=== PATIENT | female | born 1930 | race Caucasian/White ===

== ENCOUNTER 2016-07-14 10:22 | Inpatient (IN) | payer OTHER, MEDICARE ==
[~2016-07-14] VITALS: Ht 175.3 cm; Wt 81.5 kg
[~2016-07-14 10:22] MED LIST: ACET25TA PO; ALPR.25 PO; ASPI81TA82 PO; CALC-197 PO; DONE5TAB14 PO; HYDR-3533 PO; LISI5 PO; PREG25 PO; VITA100020 SL; [UNRECOGNIZED DRUG - OTHER] PO
[2016-07-14 10:33] VITALS: BP 160/72; PULSE 75; RESP 14; TEMP 98.1; O2SAT 93
[2016-07-14] MEDS ORDERED: PANTOPRAZOLE INJ 80 MG in SODIUM CHLORIDE 0.9% INJ 35 ML IV ONE (11:15)
[2016-07-14] MEDS ORDERED: SODIUM CHLORIDE 0.9% FLUSH 10 ML FLUSH IVF PRN (11:15)
[2016-07-14] MEDS ORDERED: SODIUM CHLOR 0.9% 1000 ML INJ 1,000 ML IV SCH ×2 (11:15→16:35)
--- NOTE | 2016-07-14 11:18 | PD ---
HPI Chief Complaint: GI Complaint Time Seen by Provider: 11:18 Travel History International Travel<30 days: No Contact w/Intl Traveler<30days: No Traveled to known affect area: No History of Present Illness HPI 86-year-old female with a history of CVA, TIA, dementia, paroxysmal atrial fibrillation presents to the emergency department from her assisted living facility for evaluation of bloody stools. The patient is accompanied by her daughter who is a nurse and provides much the history. The patient states that she had one episode of stool yesterday that have bright red blood. Patient's daughter states that they assumed she had a hemorrhoid. States that last night she had 2-3 episodes of stool with dark red blood. States that she does have some abdominal discomfort with nausea. States that she has felt weak over the past 2 days as well. Patient's daughter states that she feels she is a little more confused than usual but states she has had a urinary tract infection for the past 2 weeks which has also caused her to have some aggravation of her dementia. Denies any fever, chills, vomiting, chest pain, shortness of breath, lightheadedness, dizziness. Denies anticoagulation. No other complaints. PFSH Past Medical History Alzheimer's Disease: Yes Arthritis: Yes Asthma: No Atrial Fibrillation: Yes Autoimmune Disease: No Blood Disorders: No Anxiety: Yes Depression: No Heart Rhythm Problems: Yes (HX OF A-FIB) Cancer: Yes (BREAST CA) Cardiac Catheterization: Yes Cardiovascular Problems: Yes (AFIB) High Cholesterol: Yes (cholesterol) Chemotherapy: No Chest Pain: No Congestive Heart Failure: No COPD: No Cerebrovascular Accident: Yes (MULTIPLE STROKES ) Diabetes: No Diminished Hearing: No Endocrine: No Gastrointestinal Disorders: No GERD: No Genitourinary: No Hepatitis: Yes (B) Hiatal Hernia: No Hypertension: Yes Immune Disorder: No Implanted Vascular Access Dvce: Yes Kidney Stones: No Musculoskeletal: Yes (SPINAL STENOSIS; HX FALLS) Neurologic: Yes (TIA (TEN YEARS AGO), SYNCOPE WITH COLLAPSE) Psychiatric: Yes (TRANS CEREB ISCHEMIA) Reproductive: No Respiratory: No Immunizations Current: Yes Migraines: No Myocardial Infarction: Yes Radiation Therapy: Yes (2007 BREAST CA) Renal Failure: No Seizures: No Sickle Cell Disease: No Sleep Apnea: No Thyroid Disease: No Ulcer: No Influenza Vaccination: Yes ?: Not Menopausal: Yes Past Surgical History Abdominal Surgery: Yes ( RECTOCELE REP.) AICD: No Arteriovenous Shunt: No Cardiac Surgery: No Ear Surgery: No Endocrine Surgery: No Eye Surgery: No Genitourinary Surgery: No Gynecologic Surgery: Yes (hysterectomy) Hysterectomy: Yes Insulin Pump: No Joint Replacement: Yes (BILATERAL KNEES) Mastectomy: Yes (PARTIAL RIGHT MASTECTOMY) Oral Surgery: No Pacemaker: No Thoracic Surgery: No Tonsillectomy: Yes Other Surgery: Yes (RECTOCELE) Social History Alcohol Use: No Tobacco Use: No Substance Use: No Allergies-Medications (Allergen,Severity, Reaction): Coded Allergies: Penicillin (Verified Allergy, Severe, Hives, 07/14/16) Reported Meds & Prescriptions Reported Meds & Active Scripts Active Reported Xanax (Alprazolam) 0.25 Mg Tab 0.25 Mg PO BID Vitamin D High Potency (Cholecalciferol) 1,000 Unit Cap 2,000 Units PO BID Lyrica (Pregabalin) 100 Mg Cap 100 Mg PO BID Detrol LA (Tolterodine Tartrate) 4 Mg Cap 4 Mg PO DAILY Colace (Docusate Sodium) 100 Mg Capsule 100 Mg PO HS Caltrate 600+D Plus Minerals (Calcium Carbonate-Vitamin D W/Minerals) 600-800 Mg -Unit Tab 1 Tab PO HS Atorvastatin (Atorvastatin Calcium) 20 Mg Tab 20 Mg PO HS Review of Systems Except as stated in HPI: all other systems reviewed are Neg Physical Exam Narrative GENERAL: Well-nourished and well-developed pleasant elderly female patient in no acute distress who is nontoxic appearing. SKIN: Warm and dry. HEAD: Normocephalic and atraumatic. EYES: No injection, drainage, or hyphema noted. PERRLA. EOMI. ENT: No nasal drainage noted. Oropharynx is clear. NECK: Supple and the trachea is midline. CARDIOVASCULAR: Regular rate and rhythm. RESPIRATORY: Breath sounds are equal bilaterally with no accessory muscle use, wheezing, rhonchi, or crackles. GASTROINTESTINAL: Generalized abdominal tenderness to palpation. No rebound tenderness or guarding. Abdomen is soft and nondistended. RECTAL EXAM: No external hemorrhoids noted. No masses or tenderness. Stool is brown with both dark and bright red blood. Performed in the presence of Alaina FERNANDEZ. MUSCULOSKELETAL: No obvious deformities, swelling, cyanosis, or ecchymosis is present throughout the upper and lower extremities. Patient has full range of motion without any signs of neurovascular compromise. NEUROLOGICAL: Awake, alert, and oriented. Normal speech and gait. Cranial nerves are grossly intact. Data Data Last Documented VS Vital Signs Date Time Temp Pulse Resp B/P Pulse Ox O2 Delivery O2 Flow Rate FiO2 07/14/16 13:16 76 24 181/82 97 Room Air 07/14/16 10:33 98.1 Orders Complete Blood Count With Diff (07/14/16 11:15) Comprehensive Metabolic Panel (07/14/16 11:15) Lipase (07/14/16 11:15) Prothrombin Time / Inr (Pt) (07/14/16 11:15) Act Partial Throm Time (Ptt) (07/14/16 11:15) Type And Screen (07/14/16 11:15) Ecg Monitoring (07/14/16 11:15) Iv Access Insert/Monitor (07/14/16 11:15) Oximetry (07/14/16 11:15) Sodium Chlor 0.9% 1000 Ml Inj (Ns 1000 M (07/14/16 11:15) Sodium Chloride 0.9% Flush (Ns Flush) (07/14/16 11:15) Pantoprazole Inj (Protonix Inj) (07/14/16 11:15) Pantoprazole Inj (Protonix Inj) (07/14/16 11:15) Ct Abd/Pel W Iv Contrast(Rout) (07/14/16 11:15) Iohexol 350 Inj (Omnipaque 350 Inj) (07/14/16 13:17) Alprazolam (Xanax) (07/14/16 14:30) Consult Gastroenterology (07/14/16 ) (Hub Use Only)Inp Phy Cons/Ref (07/14/16 ) Labs Laboratory Tests Test 07/14/16 11:20 White Blood Count 7.2 TH/MM3 Red Blood Count 3.64 MIL/MM3 Hemoglobin 11.6 GM/DL Hematocrit 34.4 % Mean Corpuscular Volume 94.7 FL Mean Corpuscular Hemoglobin 31.8 PG Mean Corpuscular Hemoglobin 33.6 % Concent Red Cell Distribution Width 14.6 % Platelet Count 170 TH/MM3 Mean Platelet Volume 9.4 FL Neutrophils (%) (Auto) 84.1 % Lymphocytes (%) (Auto) 5.2 % Monocytes (%) (Auto) 8.6 % Eosinophils (%) (Auto) 1.6 % Basophils (%) (Auto) 0.5 % Neutrophils # (Auto) 6.1 TH/MM3 Lymphocytes # (Auto) 0.4 TH/MM3 Monocytes # (Auto) 0.6 TH/MM3 Eosinophils # (Auto) 0.1 TH/MM3 Basophils # (Auto) 0.0 TH/MM3 CBC Comment DIFF FINAL Differential Comment Prothrombin Time 10.9 SEC Prothromb Time International 1.0 RATIO Ratio Activated Partial 25.0 SEC Thromboplast Time Sodium Level 139 MEQ/L Potassium Level 3.9 MEQ/L Chloride Level 106 MEQ/L Carbon Dioxide Level 23.6 MEQ/L Anion Gap 9 MEQ/L Blood Urea Nitrogen 18 MG/DL Creatinine 0.96 MG/DL Estimat Glomerular Filtration 55 ML/MIN Rate Random Glucose 97 MG/DL Calcium Level 8.6 MG/DL Total Bilirubin 0.3 MG/DL Aspartate Amino Transf 12 U/L (AST/SGOT) Alanine Aminotransferase 22 U/L (ALT/SGPT) Alkaline Phosphatase 85 U/L Total Protein 6.4 GM/DL Albumin 3.1 GM/DL Lipase 118 U/L Blood Type O POSITIVE Antibody Screen NEGATIVE MDM Medical Decision Making Medical Screen Exam Complete: Yes Emergency Medical Condition: Yes Differential Diagnosis GI bleed versus internal hemorrhoid versus colitis versus diverticulitis versus anemia Narrative Course 86-year-old female presents to the emergency department for evaluation of bloody stool. Patient is afebrile, vital signs are stable. On examination she does have both dark and bright red blood in her stool. Stool is guaiac positive. She does have some abdominal tenderness as well. IV access is obtained, labs were drawn and sent. Patient is placed on cardiac telemetry and pulse oximetry monitoring. Patient is administered IV fluids, Protonix bolus and drip. CT of the abdomen and pelvis with IV contrast has been ordered and is pending. CBC is unremarkable. CMP is unremarkable. Coags are unremarkable. CT of the abdomen and pelvis shows a loss of postural architecture in the hepatic flexure with some mild blurring of the wall of the colon. This is nonspecific but raises the possibility of an inflammatory process in the hepatic flexure. Sigmoid diverticula without radiographic evidence for diverticulitis. 6 mm noncalcified nodule medial right lung. Small hiatus hernia. 2 cm focal fluid collection in the right inguinal canal which does not connect into the pelvis and does not connect to a loop of bowel of uncertain significance. Patient has remained stable while here in the emergency department. She has had some anxiety about waiting here for results and was given Xanax which she usually takes. Because she is actively bleeding from her rectum she will be admitted for repeat CBC and gastroenterology consultation. I discussed the case with my attending physician Dr. Feng who is aware of the patients history, physical examination findings, and treatment plan. HemaPrompt Point of Care Internal Pos. & Neg. Controls: Passed Fecal Specimen Occult Blood: Positive Physician Communication Physician Communication I spoke with Dr. Alexandra [facility] who agrees to admit the patient to his service. Diagnosis Primary Impression: GI bleed Qualified Code: K92.2 - Gastrointestinal hemorrhage, unspecified gastrointestinal hemorrhage type Admitting Information Admitting Physician Requests: Observation Brenna Hauser Jul 14, 2016 11:18
[2016-07-14 11:42] LABS: AUTOMATED NEUTROPHIL # 6.1 TH/MM3 (1.8-7.7); BASOPHIL % 0.5 % (0.0-2.0); EOSINOPHIL # 0.1 TH/MM3 (0-0.4); EOSINOPHIL % 1.6 % (0.0-4.0); HEMATOCRIT 34.4 % (35.0-46.0); HEMO FLAGS DIFF FINAL; LYMPH % 5.2 % (9.0-44.0); LYMPHOCYTE # 0.4 TH/MM3 (1.0-4.8); MEAN CELL VOLUME 94.7 FL (80.0-100.0); MEAN CORPUSCULAR HEMOGLOBIN 31.8 PG (27.0-34.0); MEAN CORPUSCULAR HGB CONC 33.6 % (32.0-36.0); MONO % 8.6 % (0.0-8.0); NEUT % 84.1 % (16.0-70.0); PLATELET COUNT 170 TH/MM3 (150-450); RED BLOOD COUNT 3.64 MIL/MM3 (4.00-5.30); RED CELL DISTRIBUTION WIDTH 14.6 % (11.6-17.2); WHITE BLOOD COUNT 7.2 TH/MM3 (4.0-11.0)
[2016-07-14 11:51] LABS: PROTHROMBIN TIME - PATIENT 10.9 SEC (9.8-11.6)
[2016-07-14] MEDS: PANTOPRAZOLE INJ 80 MG in SODIUM CHLORIDE 0.9% INJ 100 ML IV SCH ×2 (12:09→21:28)
[2016-07-14 12:29] LABS: ANION GAP 9 MEQ/L (5-15); AST (GOT) 12 U/L (15-37); BICARBONATE 23.6 MEQ/L (21.0-32.0); BLOOD UREA NITROGEN 18 MG/DL (7-18); CHLORIDE 106 MEQ/L (98-107); GLOMERULAR FILTRATION RATE 55 ML/MIN (>89); POTASSIUM 3.9 MEQ/L (3.5-5.1); SODIUM (NA) 139 MEQ/L (136-145)
[2016-07-14 12:33] LABS: ALKALINE PHOSPHATASE 85 U/L (45-117); ALT (GPT) 22 U/L (10-53); TOTAL BILIRUBIN ADULT 0.3 MG/DL (0.2-1.0)
[2016-07-14 13:16] VITALS: BP 181/82; PULSE 76; RESP 24; O2SAT 97
[2016-07-14] MEDS ORDERED: IOHEXOL 350 MG/ML 10 ML VIAL (for RAD DIAG) IV ONE (13:17)
[2016-07-14] MEDS ORDERED: ATOR20TA15 PO (13:54)
[2016-07-14] MEDS ORDERED: DETR4CAP PO (13:54)
[2016-07-14] MEDS ORDERED: COLA100C PO (13:54)
[2016-07-14] MEDS ORDERED: CALC1TAB34 PO (13:54)
[2016-07-14] MEDS ORDERED: ALPR.5 PO (14:20)
[2016-07-14] MEDS ORDERED: LYRI100C PO (14:20)
[2016-07-14] MEDS ORDERED: VITA100052 PO (14:20)
[2016-07-14] MEDS ORDERED: ALPRAZolam 0.25 MG TAB PO PRN (14:30)
--- NOTE | 2016-07-14 14:42 | RADRPT ---
EXAM DATE/TIME: 07/14/2016 13:02 [facility] COMPARISON: No previous studies available for comparison. INDICATIONS : Abdomen pain, nausea and bloody stool for 2 days. IV CONTRAST: 96 cc Omnipaque 350 (iohexol) IV ORAL CONTRAST: No oral contrast ingested. RADIATION DOSE: 24.16 CTDIvol (mGy) MEDICAL HISTORY : Cardiovascular disease. Hypertension. Malignancy.Nephrectomy, diverticulitis, SURGICAL HISTORY : Masectomy ENCOUNTER: Initial ACUITY: 2 days PAIN SCALE: 2/10 LOCATION: middle abdomen TECHNIQUE: Volumetric scanning of the abdomen and pelvis was performed. Using automated exposure control and ad justment of the mA and/or kV according to patient size, radiation dose was kept as low as reasonably achievable to obtain optimal diagnostic quality images. FINDINGS: LOWER LUNGS: There is a 6 mm noncalcified nodule medial right lower lung. Small hiatus hernia. LIVER: Homogeneous density without lesion. There is no dilation of the biliary tree. No calcified gallston es. SPLEEN: Normal size without lesion. PANCREAS: No focal lesions. Diffuse fatty atrophy. KIDNEYS: Normal in size and shape. There is no mass, stone or hydronephrosis. ADRENAL GLANDS: Within normal limits. VASCULAR: There is no aortic aneurysm. BOWEL/MESENTERY: No dilated loops of small or large bowel. There is some mild blurring of the wall of the colon in th e region of the hepatic flexure without definite wall thickening without free fluid. This is of unce rtain significance. There is also loss of haustration in the segment of the colon. Multiple sigmoid diverticula without radiographic evidence of diverticulitis. ABDOMINAL WALL: Within normal limits. RETROPERITONEUM: There is no lymphadenopathy. BLADDER: No wall thickening or mass. REPRODUCTIVE: Within normal limits. INGUINAL: There is a rounded low density oval lesion in the right inguinal canal which measures 2.0 cm. Main C T density is 3 Hounsfield units suggesting this represents a small collection of fluid. This does no t connect to the abdomen or pelvis. MUSCULOSKELETAL: Transpedicular screws in the lower lumbar spine. Diffuse osteopenia. CONCLUSION: 1. The loss of haustral architecture in the hepatic flexure with some mild blurring of the wall of th e colon. This is nonspecific but raises the possibility of an inflammatory process in the hepatic fl exure. 2. Sigmoid diverticula without radiographic evidence of diverticulitis. 3. 6 mm noncalcified nodule medial right lung. 4. Small hiatus hernia. 5. 2 cm focal fluid collection in the right inguinal canal which does not connect into the pelvis and does not connect to a loop of bowel. This is of uncertain significance. Manny Stover MD on July 14, 2016 at 14:12 Board Certified Radiologist. This report was verified electronically.
[2016-07-14] MEDS ORDERED: ALPR.25 PO (14:48)
--- NOTE | 2016-07-14 15:57 | PD.CONS ---
HPI History of Present Illness This is a 86 year old lady with hx diverticulosis who presented to ER with rectal bleeding. Pt with dementia, non contributory. Hx obtained from daughter. Yesterday onset BRBPR. During night 2 or 3 incidents of dark blood and stool seen in bowl by [facility] staff, seen by daughter. She did have fever last night. No hx GI bleed. Last colonoscopy some years ago, more than 5, findings not known. Distant history of diverticulitis requiring hospitalization, more than 20 y ago. Denies abd pain but per daughter when pt is palpated she c/o pain. No n/v. No blood thinners. No NSAIDs. Pt is taking antibiotics for a UTI, macrobid. Per daughter pt at one time lived in close contact with son who had Hep c. (Laura Cabrera) PFSH Past Medical History dementia, alzheimers breast ca TIA CVA hx AF but no currently Past Surgical History bilat knee replacement lumbar fusion x 2 hysterectomy partial mastectomy right side (Laura Cabrera) Coded Allergies: Haldol (Verified Allergy, Severe, PSYCHOSIS, 07/14/16) Penicillin (Verified Allergy, Severe, Hives, 07/14/16) Family History none Social History no ETOH no tobacco, quit 40y ago no illicit drugs (Laura Cabrera) Review of Systems Constitutional: COMPLAINS OF: Fever (last night) Eyes: DENIES: Blurred vision Ears, nose, mouth, throat: DENIES: Hearing loss Respiratory: DENIES: Cough Cardiovascular: DENIES: Chest pain Gastrointestinal: COMPLAINS OF: Bloody stools, Diarrhea, DENIES: Abdominal pain, Black stools, Constipation, Nausea, Vomiting, Hematemesis Genitourinary: COMPLAINS OF: Dysuria (pt being treated for UTI), DENIES: Hematuria Musculoskeletal: DENIES: Muscle aches Integumentary: DENIES: Abnormal pigmentation Hematologic/lymphatic: DENIES: Bruising Neurologic: DENIES: Headache Psychiatric: DENIES: Anxiety (Laura Cabrera) GI Exam Vitals I&O Vital Signs Date Time Temp Pulse Resp B/P Pulse Ox O2 Delivery O2 Flow Rate FiO2 07/14/16 13:16 76 24 181/82 97 Room Air 07/14/16 10:33 98.1 75 14 160/72 93 Imaging Last Impressions Abdomen/Pelvis CT 07/14/16 1115 Signed Impressions: Service Date/Time: July 13:02 - CONCLUSION: 1. The loss of haustral architecture in the hepatic flexure with some mild blurring of the wall of the colon. This is nonspecific but raises the possibility of an inflammatory process in the hepatic flexure. 2. Sigmoid diverticula without radiographic evidence of diverticulitis. 3. 6 mm noncalcified nodule medial right lung. 4. Small hiatus hernia. 5. 2 cm focal fluid collection in the right inguinal canal which does not connect into the pelvis and does not connect to a loop of bowel. This is of uncertain significance. Manny Stover MD Laboratory Test 07/14/16 11:20 White Blood Count 7.2 TH/MM3 Red Blood Count 3.64 MIL/MM3 Hemoglobin 11.6 GM/DL Hematocrit 34.4 % Mean Corpuscular Volume 94.7 FL Mean Corpuscular Hemoglobin 31.8 PG Mean Corpuscular Hemoglobin 33.6 % Concent Red Cell Distribution Width 14.6 % Platelet Count 170 TH/MM3 Mean Platelet Volume 9.4 FL Neutrophils (%) (Auto) 84.1 % Lymphocytes (%) (Auto) 5.2 % Monocytes (%) (Auto) 8.6 % Eosinophils (%) (Auto) 1.6 % Basophils (%) (Auto) 0.5 % Neutrophils # (Auto) 6.1 TH/MM3 Lymphocytes # (Auto) 0.4 TH/MM3 Monocytes # (Auto) 0.6 TH/MM3 Eosinophils # (Auto) 0.1 TH/MM3 Basophils # (Auto) 0.0 TH/MM3 CBC Comment DIFF FINAL Differential Comment Prothrombin Time 10.9 SEC Prothromb Time International 1.0 RATIO Ratio Activated Partial 25.0 SEC Thromboplast Time Sodium Level 139 MEQ/L Potassium Level 3.9 MEQ/L Chloride Level 106 MEQ/L Carbon Dioxide Level 23.6 MEQ/L Anion Gap 9 MEQ/L Blood Urea Nitrogen 18 MG/DL Creatinine 0.96 MG/DL Estimat Glomerular Filtration 55 ML/MIN Rate Random Glucose 97 MG/DL Calcium Level 8.6 MG/DL Total Bilirubin 0.3 MG/DL Aspartate Amino Transf 12 U/L (AST/SGOT) Alanine Aminotransferase 22 U/L (ALT/SGPT) Alkaline Phosphatase 85 U/L Total Protein 6.4 GM/DL Albumin 3.1 GM/DL Lipase 118 U/L Blood Type O POSITIVE Antibody Screen NEGATIVE Physical Examination HEENT: Pupils round and reactive to light; normocephalic; atraumatic; no jaundice. Throat is clear. NECK: Neck is supple, no JVD, no lymphadenopathy. CHEST: Chest is clear to auscultation and percussion. CARDIAC: Regular rate and rhythm with no murmur gallop or rubs. ABDOMEN: Soft, nondistended, nontender; no hepatosplenomegaly; bowel sounds are present in all four quadrants. EXTREMITIES: No clubbing, cyanosis, or edema. SKIN: Normal; no rash; no jaundice. SCIENTIFIC WRITER: No focal deficits; alert and oriented times three. (Laura Cabrera) Assessment and Plan Plan ASSESSMENT - diarrhea, hematochezia - onset yesterday BRBPR and subsequent episodes dark blood and stool seen in bowl. No prior hx GI bleed, last colonoscopy more than 5y ago, findings not known. Does have diverticulosis. CT 07-14-16 --> 1. The loss of haustral architecture in the hepatic flexure with some mild blurring of the wall of the colon. This is nonspecific but raises the possibility of an inflammatory process in the hepatic flexure. 2. Sigmoid diverticula without radiographic evidence of diverticulitis. 3. 6 mm noncalcified nodule medial right lung. 4. Small hiatus hernia. 5. 2 cm focal fluid collection in the right inguinal canal which does not connect into the pelvis and does not connect to a loop of bowel. This is of uncertain significance PLAN - stool cx - colonoscopy tomorrow - obtain consents - clears - GoLytely prep - NPO after midnight - supportive care - monitor HH - further recommendations to follow This pt seen by myself and Dr Frey and this note is written on his behalf. ( Laura Cabrera) Physician Comments Seen and examined, plan as above . Further recommendations based on the endoscopic findings. (Graeme Frey MD ) Laura Cabrera Jul 14, 2016 15:57 Graeme Frey MD Jul 14, 2016 23:52
--- NOTE | 2016-07-14 16:36 | HHI.HP ---
[facility] Noel Castrejon MD Admission Diagnosis GI Bleed Diagnoses: Chief Complaint: Blood in the stool Travel History International Travel<30 Days: No Contact w/Intl Traveler <30 Da: No Traveled to Known Affected Are: No History of Present Illness 86-year-old female with a medical history significant for dementia, breast cancer status post resection, remote history of atrial fibrillation not on anticoagulant, diverticulosis who presented to the emergency room with complaint of blood in the stool since yesterday. The patient has dementia and unable to contribute much to the history. History obtained from extensive review of the EMR and discussion with the patient's daughter at bedside. Apparently the patient has had a UTI that was previously treated with ciprofloxacin. However couple of days ago her urinalysis was still abnormal and she was switched to Macrobid. She remained asymptomatic from a urinary standpoint. Yesterday afternoon she reportedly had a fever and had a couple episodes of bowel movements with blood in it. This happened at the intermediate facility and her daughter is unable to quantify. The patient presented today and had another episode of dark stool and bright red blood in the emergency room. She denies abdominal pain at rest. No nausea or vomiting. Review of Systems Constitutional: COMPLAINS OF: Fever, DENIES: Chills Respiratory: DENIES: Cough, Shortness of breath Cardiovascular: DENIES: Chest pain, Palpitations Gastrointestinal: COMPLAINS OF: Black stools, Bloody stools, DENIES: Diarrhea , Nausea, Vomiting Genitourinary: DENIES: Dysuria Psychiatric: COMPLAINS OF: Confusion Except as stated in HPI: all other systems reviewed are Neg Past Family Social History Past Medical History History of atrial fibrillation. Daughter reports she was followed by cardiology and was discontinued on all medications many years ago since she did not have any recurrence of A. fib Dementia Breast cancer TIA Pituitary Macroadenoma Anxiety CAD status post PCI Past Surgical History Bilateral knee replacement Rectocele repair Lumbar fusion Right mastectomy Hysterectomy Reported Medications Reported Meds & Active Scripts Active Reported Xanax (Alprazolam) 0.25 Mg Tab 0.25 Mg PO BID Vitamin D High Potency (Cholecalciferol) 1,000 Unit Cap 2,000 Units PO BID Lyrica (Pregabalin) 100 Mg Cap 100 Mg PO BID Detrol LA (Tolterodine Tartrate) 4 Mg Cap 4 Mg PO DAILY Colace (Docusate Sodium) 100 Mg Capsule 100 Mg PO HS Caltrate 600+D Plus Minerals (Calcium Carbonate-Vitamin D W/Minerals) 600-800 Mg -Unit Tab 1 Tab PO HS Atorvastatin (Atorvastatin Calcium) 20 Mg Tab 20 Mg PO HS Allergies: Coded Allergies: Penicillin (Verified Allergy, Severe, Hives, 07/14/16) Family History Reviewed and noncontributory. Social History Patient does not drink alcohol or use tobacco. Physical Exam Vital Signs Vital Signs Date Time Temp Pulse Resp B/P Pulse Ox O2 Delivery O2 Flow Rate FiO2 07/14/16 13:16 76 24 181/82 97 Room Air 07/14/16 10:33 98.1 75 14 160/72 93 Physical Exam GENERAL: Elderly female. Pleasantly demented SKIN: No rashes, ecchymoses or lesions. Cool and dry. HEAD: Atraumatic. Normocephalic. No temporal or scalp tenderness. EYES: Pupils equal round and reactive. Extraocular motions intact. No scleral icterus. No injection or drainage. ENT: Nose without bleeding, purulent drainage or septal hematoma. Throat without erythema, tonsillar hypertrophy or exudate. Uvula midline. Airway patent. NECK: Trachea midline. No JVD or lymphadenopathy. Supple, nontender, no meningeal signs. CARDIOVASCULAR: Regular rate and rhythm without murmurs, gallops, or rubs. RESPIRATORY: Clear to auscultation. Breath sounds equal bilaterally. No wheezes , rales, or rhonchi. GASTROINTESTINAL: Abdomen soft, mildly distended. Diffusely tender to palpation. No guarding. MUSCULOSKELETAL: Trace bilateral lower extremity edema. Negative Homans sign bilaterally. NEUROLOGICAL: Awake and alert. At times confused. Normal speech. Laboratory Laboratory Tests Test 07/14/16 11:20 White Blood Count 7.2 Red Blood Count 3.64 Hemoglobin 11.6 Hematocrit 34.4 Mean Corpuscular Volume 94.7 Mean Corpuscular Hemoglobin 31.8 Mean Corpuscular Hemoglobin 33.6 Concent Red Cell Distribution Width 14.6 Platelet Count 170 Mean Platelet Volume 9.4 Neutrophils (%) (Auto) 84.1 Lymphocytes (%) (Auto) 5.2 Monocytes (%) (Auto) 8.6 Eosinophils (%) (Auto) 1.6 Basophils (%) (Auto) 0.5 Neutrophils # (Auto) 6.1 Lymphocytes # (Auto) 0.4 Monocytes # (Auto) 0.6 Eosinophils # (Auto) 0.1 Basophils # (Auto) 0.0 CBC Comment DIFF FINAL Differential Comment Prothrombin Time 10.9 Prothromb Time International 1.0 Ratio Activated Partial 25.0 Thromboplast Time Sodium Level 139 Potassium Level 3.9 Chloride Level 106 Carbon Dioxide Level 23.6 Anion Gap 9 Blood Urea Nitrogen 18 Creatinine 0.96 Estimat Glomerular Filtration 55 Rate Random Glucose 97 Calcium Level 8.6 Total Bilirubin 0.3 Aspartate Amino Transf 12 (AST/SGOT) Alanine Aminotransferase 22 (ALT/SGPT) Alkaline Phosphatase 85 Total Protein 6.4 Albumin 3.1 Lipase 118 Blood Type O POSITIVE Antibody Screen NEGATIVE Result Diagram: 07/14/16 1120 07/14/16 1120 Imaging Last Impressions Abdomen/Pelvis CT 07/14/16 1115 Signed Impressions: Service Date/Time: , July 14, 2016 13:02 - CONCLUSION: 1. The loss of haustral architecture in the hepatic flexure with some mild blurring of the wall of the colon. This is nonspecific but raises the possibility of an inflammatory process in the hepatic flexure. 2. Sigmoid diverticula without radiographic evidence of diverticulitis. 3. 6 mm noncalcified nodule medial right lung. 4. Small hiatus hernia. 5. 2 cm focal fluid collection in the right inguinal canal which does not connect into the pelvis and does not connect to a loop of bowel. This is of uncertain significance. Manny Stover MD Assessment and Plan Problem List: (1) GI bleed ICD Code: K92.2 Status: Acute (2) Colitis ICD Code: K52.9 Status: Acute (3) UTI (urinary tract infection) ICD Code: N39.0 Status: Acute Assessment and Plan 86-year-old female with: GI bleed: Patient has been having melena and bright red blood per rectum for the past couple of days. Witnessed episode in the ED. She was recently on antibiotics for UTI. History of diverticulosis. Abdominal CT noted loss of hospital architecture in the hepatic flexure. Some possibility of inflammatory process. Diverticuli with no overt evidence of diverticulitis - Need to rule out C. difficile colitis. Serial H&H. Concerned that hemoconcentration is showing a falsely elevated H& H. Appreciate GI consult Patient was started on Protonix drip in the ED. Supportive care with IV fluid and pain control. Elevated BP: Likely secondary to above. Monitor BP Clonidine as needed. UTI: Patient was reportedly being treated for UTI at this SNF. She was started on Macrobid yesterday - Continue Macrobid Dementia with behavioral disturbances, mostly anxiety: Continue Xanax as needed. Code Status DNR Discussed Condition With ER KIRILL Sagastume Physician Certification 2 Midnight Certification Type: Admission for Inpatient Services Order for Inpatient Services The services are ordered in accordance with Medicare regulations or non- Medicare payer requirements, as applicable. In the case of services not specified as inpatient-only, they are appropriately provided as inpatient services in accordance with the 2-midnight benchmark. Estimated LOS (days): 3 days is the estimated time the patient will need to remain in the hospital, assuming treatment plan goals are met and no additional complications. Post-Hospital Plan: SNF Problem Qualifiers (1) GI bleed: Qualified Code: K92.2 - Gastrointestinal hemorrhage, unspecified gastrointestinal hemorrhage type Juanito Alexandra MD Jul 14, 2016 16:36
[2016-07-14] MEDS ORDERED: SODIUM CHLORIDE 0.9% FLUSH 10 ML FLUSH IV FLUSH PRN (16:45)
[2016-07-14 17:46] VITALS: BP 170/77; PULSE 64; RESP 15; O2SAT 96
[2016-07-14] MEDS ORDERED: ONDANSETRON HCL 4 MG/2 ML VIAL IV PRN (18:00)
[2016-07-14] MEDS ORDERED: PEG (High)/E-LYTE SOLN 4000 ML BTL PO ONE (18:00)
[2016-07-14 18:30] VITALS: BP 208/84; PULSE 56; RESP 18; TEMP 97.8; O2SAT 95
[2016-07-14 18:50] VITALS: BP 182/81
[2016-07-14] MEDS: cloNIDine HCL 0.1 MG TAB PO PRN (19:01)
[2016-07-14 19:22] LABS: REVIEW FLAG FINAL
[2016-07-14 20:00] VITALS: BP 200/88; PULSE 60; RESP 18; TEMP 97.8; O2SAT 95
[2016-07-14] MEDS: ATORVASTATIN 20 MG TAB PO SCH (21:28)
[2016-07-14] MEDS: DOCUSATE SODIUM 100 MG CAP PO SCH (21:28)
[2016-07-14] MEDS: PREGABALIN 100 MG CAP PO SCH (21:28)
[2016-07-14] MEDS: ALPRAZolam 0.25 MG TAB PO SCH (21:28)
[2016-07-14] MEDS: CHOLECALCIFEROL (VIT D3) 1000 UNIT TAB PO SCH (21:28)
[2016-07-14] MEDS: SODIUM CHLORIDE 0.9% FLUSH 10 ML FLUSH IV FLUSH SCH (21:28)
[2016-07-14 22:49] LABS: C. DIFF EPI 027 PRESUMPTIVE NEGATIVE (NEGATIVE); C. DIFF TOXIN PCR NEGATIVE (NEGATIVE)
[2016-07-15] VITALS (7 sets, daily range): BP systolic 134–233; BP diastolic 61–106; PULSE 52–82; RESP 14–20; TEMP 97.4–98; O2SAT 93–98
[2016-07-15] MEDS: cloNIDine HCL 0.1 MG TAB PO PRN ×3 (01:21→19:45)
[2016-07-15 03:31] LABS: HEMATOCRIT 30.3 % (35.0-46.0); MEAN CELL VOLUME 94.8 FL (80.0-100.0); MEAN CORPUSCULAR HEMOGLOBIN 31.9 PG (27.0-34.0); MEAN CORPUSCULAR HGB CONC 33.7 % (32.0-36.0); PLATELET COUNT 140 TH/MM3 (150-450); RED BLOOD COUNT 3.19 MIL/MM3 (4.00-5.30); RED CELL DISTRIBUTION WIDTH 14.5 % (11.6-17.2); WHITE BLOOD COUNT 5.1 TH/MM3 (4.0-11.0)
[2016-07-15 03:34] LABS: HEMO FLAGS AUTO DIFF
[2016-07-15 03:52] LABS: BICARBONATE 26.6 MEQ/L (21.0-32.0); POTASSIUM 3.5 MEQ/L (3.5-5.1)
[2016-07-15 04:14] LABS: BANDS 2 % (0-6); EOSINOPHILS 3 % (0-4); NEUTROPHIL # MANUAL DIFF 3.9 TH/MM3 (1.8-7.7); POLYS (SEG NEUTROPHILS) 75 % (16-70); WBC DIFF SAMPLE 100
[2016-07-15 04:17] LABS: PLATELET ESTIMATE SMEAR LOW (NORMAL); PLATELET MORPHOLOGY NORMAL (NORMAL); SCAN/DIFF FINAL DIFF MANUAL
[2016-07-15] MEDS: PANTOPRAZOLE INJ 80 MG in SODIUM CHLORIDE 0.9% INJ 100 ML IV SCH (06:19)
[2016-07-15] MEDS: PREGABALIN 100 MG CAP PO SCH ×2 (09:05→19:47)
[2016-07-15] MEDS: CHOLECALCIFEROL (VIT D3) 1000 UNIT TAB PO SCH ×2 (09:05→19:52)
[2016-07-15] MEDS: TOLTERODINE TARTRATE 4 MG CAP LA PO SCH (09:06)
[2016-07-15] MEDS: SODIUM CHLORIDE 0.9% FLUSH 10 ML FLUSH IV FLUSH SCH ×2 (09:06→20:05)
[2016-07-15] MEDS: CALCIUM/VITAMIN D 250 MG/125 U TAB PO SCH (09:06)
[2016-07-15] MEDS: ALPRAZolam 0.25 MG TAB PO SCH ×2 (09:08→19:45)
[2016-07-15] MEDS ORDERED: LISINOPRIL 20 MG TAB PO ONE (10:00)
[2016-07-15] MEDS ORDERED: PROPOFOL 200 MG/20 ML AMP IV PUSH ONE (10:22)
--- NOTE | 2016-07-15 10:34 | GIPROC ---
[facility] [address] [facility]. [facility], [id number] COLONOSCOPY PROCEDURE REPORT EXAM DATE: 07/15/2016 PATIENT NAME: Rae Marie MR #: [id number] BIRTHDATE: 1930 ENDOSCOPIST: Graeme Frey MD ORDER #: [id number] EXAMINER OF CURRENCY: Jeff Negrete and Sada Gillespie STATUS: inpatient INDICATIONS: The patient is a 86 yr old female here for a colonoscopy due to hematochezia PROCEDURE PERFORMED: Colonoscopy, diagnostic MEDICATIONS: None and Per Anesthesia. PREP QUALITY: poor PREP TYPE:GoLytely ESTIMATED BLOOD LOSS: None CONSENT: The patient understands the risks and benefits of the procedure and understands that these risks include, but are not limited to: sedation, allergic reaction, infection, perforation and/or bleeding. Alternative means of evaluation and treatment include, among others: physical exam, x-rays, and/or surgical intervention. The patient elects to proceed with this endoscopic procedure. medical equipment was checked for proper function. Hand hygiene and appropriate measures for infection prevention was taken. After the risks, benefits and alternatives of the procedure were thoroughly explained, Informed consent was verified, confirmed and timeout was successfully executed by the treatment team. A digital exam was performed The Pentax [id number] endoscope was introduced through the anus and advanced to the cecum, which was identified by both the appendix and ileocecal valve. The instrument was then slowly withdrawn as the colon was fully examined. COLON FINDINGS: Severe diverticulosis was noted in the sigmoid colon, descending colon, and ascending colon. Retroflexed views revealed no abnormalities The scope was then completely withdrawn from the patient and the procedure terminated. PROCEDURE WITHDRAWAL TIME:9minutes ADVERSE EVENTS: There were no complications. IMPRESSIONS: 1. Severe diverticulosis was noted in the sigmoid colon, descending colon, and ascending colon 2. Retroflexed views revealed no abnormalities RECOMMENDATIONS: High fiber diet RECALL: Return 1 year Colonoscopy Graeme Frey MD eSigned: Graeme Frey MD 07/15/2016 10:33 AM cc: PATIENT NAME: Rae Marie MR#: [id number]
--- NOTE | 2016-07-15 14:01 | HHI.PR ---
Objective Vitals Vital Signs Date Time Temp Pulse Resp B/P Pulse Ox O2 Delivery O2 Flow Rate FiO2 07/15/16 12:00 97.5 63 14 196/89 93 07/15/16 10:59 66 18 133/73 95 07/15/16 10:45 67 18 129/66 97 07/15/16 10:30 97.6 59 18 111/67 93 07/15/16 09:58 98.0 60 20 152/68 98 07/15/16 08:00 98.0 60 20 233/106 95 219/90 224/95 07/15/16 04:00 97.8 59 16 134/61 95 07/15/16 00:01 97.6 52 17 185/77 95 07/14/16 20:00 97.8 60 18 200/88 95 07/14/16 18:50 182/81 07/14/16 18:30 97.8 56 18 208/84 95 07/14/16 17:46 64 15 170/77 96 Room Air I/O 07/14/16 07/14/16 07/14/16 07/15/16 07/15/16 07/15/16 07:00 15:00 23:00 07:00 15:00 23:00 Intake Total 1621 ml 562 ml 150 ml Output Total 250 ml 1 ml 2 ml Balance 1371 ml 561 ml 148 ml Intake Oral 1080 ml 0 ml 0 ml IV Total 541 ml 562 ml 150 ml Output Urine Total 250 ml 1 ml 2 ml # Voids 2 # Bowel Movements 8 4 0 Result Diagram: 07/15/16 0318 07/15/16 0318 Imaging Last Impressions Abdomen/Pelvis CT 07/14/16 1115 Signed Impressions: Service Date/Time: July 13:02 - CONCLUSION: 1. The loss of haustral architecture in the hepatic flexure with some mild blurring of the wall of the colon. This is nonspecific but raises the possibility of an inflammatory process in the hepatic flexure. 2. Sigmoid diverticula without radiographic evidence of diverticulitis. 3. 6 mm noncalcified nodule medial right lung. 4. Small hiatus hernia. 5. 2 cm focal fluid collection in the right inguinal canal which does not connect into the pelvis and does not connect to a loop of bowel. This is of uncertain significance. Manny Stover MD Objective Remarks GENERAL: Elderly female. Anxious and tearful. CARDIOVASCULAR: Regular rate and rhythm without murmurs, gallops, or rubs. RESPIRATORY: Clear to auscultation. Breath sounds equal bilaterally. No wheezes , rales, or rhonchi. GASTROINTESTINAL: Abdomen soft, mildly distended. Nontender to palpation. No guarding. MUSCULOSKELETAL: Trace bilateral lower extremity edema. Negative Homans sign bilaterally. NEUROLOGICAL: Awake and alert. Confused. Normal speech. A/P Problem List: (1) GI bleed ICD Code: K92.2 Status: Acute (2) Colitis ICD Code: K52.9 Status: Acute (3) UTI (urinary tract infection) ICD Code: N39.0 Status: Acute Assessment and Plan 86-year-old female with: GI bleed: Patient has been having melena and bright red blood per rectum for the past couple of days. Witnessed episode in the ED. She was recently on antibiotics for UTI. History of diverticulosis. Abdominal CT noted loss of hospital architecture in the hepatic flexure. Some possibility of inflammatory process. Diverticuli with no overt evidence of diverticulitis -C. difficile colitis ruled out. Serial H&H. Trended down but stabilizing. Appreciate GI following. Patient is status post colonoscopy which showed severe diverticulosis. Supportive care with IV fluid and pain control. Elevated BP: Likely secondary to above. Monitor BP Clonidine as needed. UTI: Patient was reportedly being treated for UTI at this SNF. She was started on Macrobid yesterday - Continue Macrobid Dementia with behavioral disturbances, mostly anxiety. However the patient is also depressed today, requesting to because "she has lived a very good life and does not want to go back to the prison facility because people are fighting there": Continue Xanax as needed. Consult psychiatry for assistance. Discharge Planning Continue to monitor. If no further episodes of bleeding and cleared by GI, can potentially discharge back to the prison facility tomorrow. Problem Qualifiers (1) GI bleed: Qualified Code: K92.2 - Gastrointestinal hemorrhage, unspecified gastrointestinal hemorrhage type Juanito Alexandra MD Jul 15, 2016 14:01
[2016-07-15 16:36] LABS: REVIEW FLAG FINAL
[2016-07-15] MEDS: NITROFURANTOIN MONOHYD MACROCR 100 MG CAP PO SCH (18:00)
[2016-07-15] MEDS: ATORVASTATIN 20 MG TAB PO SCH (19:52)
[2016-07-15] MEDS: DOCUSATE SODIUM 100 MG CAP PO SCH (19:52)
[2016-07-15 22:42] LABS: HEMATOCRIT 33.9 % (35.0-46.0); REVIEW FLAG FINAL
[2016-07-16] VITALS: BP 177/80; PULSE 69; RESP 19; TEMP 97; O2SAT 97
[2016-07-16 04:00] VITALS: BP 137/86; PULSE 89; RESP 19; TEMP 97.1; O2SAT 96
[2016-07-16 09:01] LABS: HEMATOCRIT 36.9 % (35.0-46.0); MEAN CELL VOLUME 95.1 FL (80.0-100.0); MEAN CORPUSCULAR HGB CONC 32.6 % (32.0-36.0); PLATELET COUNT 164 TH/MM3 (150-450); RED BLOOD COUNT 3.88 MIL/MM3 (4.00-5.30); RED CELL DISTRIBUTION WIDTH 14.2 % (11.6-17.2); REVIEW FLAG FINAL; WHITE BLOOD COUNT 7.2 TH/MM3 (4.0-11.0)
[2016-07-16] MEDS: CALCIUM/VITAMIN D 250 MG/125 U TAB PO SCH (09:36)
[2016-07-16] MEDS: CHOLECALCIFEROL (VIT D3) 1000 UNIT TAB PO SCH (09:36)
[2016-07-16] MEDS: PREGABALIN 100 MG CAP PO SCH (09:36)
[2016-07-16] MEDS: NITROFURANTOIN MONOHYD MACROCR 100 MG CAP PO SCH (09:36)
[2016-07-16] MEDS: TOLTERODINE TARTRATE 4 MG CAP LA PO SCH (09:36)
[2016-07-16] MEDS: ALPRAZolam 0.25 MG TAB PO SCH (09:36)
[2016-07-16 09:37] LABS: BICARBONATE 23.2 MEQ/L (21.0-32.0); POTASSIUM 4.6 MEQ/L (3.5-5.1)
[2016-07-16] MEDS: SODIUM CHLORIDE 0.9% FLUSH 10 ML FLUSH IV FLUSH SCH (09:39)
[2016-07-16] MEDS ORDERED: ESCITALOPRAM OXALATE 10 MG TAB PO SCH (09:45)
--- NOTE | 2016-07-16 09:47 | PD.CONS ---
Provisional Diagnosis Admission Date Jul 14, 2016 at 16:00 Hayden I. Major depressive disorder single episode mild f 32.0 History of Present Illness Service Psychiatry Consult Requested By Attending MXochitl Reason for Consult Depressive symptoms Primary Care Physician Noel Castrejon MD HPI Patient is an 86-year-old white female admitted to medical service with a GI bleed. Is made statements that she just wants to . Review of our EMR shows no prior psychiatric contact or hospitalizations. Patient seen in her room with nurse and sitter present throughout session. She is an alert pleasant white female appears her stated age resting quietly in bed. She is disoriented as to place time and situation though she knows she is in the hospital. With prompts she does know she is here because she is bleeding and that she needs assistance. She denies any prior psychiatric contact hospitalization his psychotropic medications. She does denies suicidality. Denies alcohol or drug use. Denies voices or visions. She states she has a daughter who lives locally that she is close to. She does acknowledge the sad mood. At this there for the patient is suffering from a depression that may be influencing her ability to make appropriate decisions. It appears her daughter is involved in her care and I think that is appropriate. I would recommend we initiate antidepressant treatment with Lexapro 10 mg daily. I agree with judicious use of low-dose benzodiazepines only if clinically indicated. Thanks for consult will follow-up on an as-needed basis in the myself or Dr. Telles who is covering consult service this week Review of Systems Constitutional: DENIES: Diaphoretic episodes, Fatigue, Fever, Weight gain, Weight loss, Chills, Dizziness, Change in appetite, Night Sweats Endocrine: DENIES: Abnorml menstrual pattern, Heat/cold intolerance, Polydipsia , Polyuria, Polyphagia Eyes: DENIES: Blurred vision, Diplopia, Eye inflammation, Eye pain, Vision loss , Photosensitivity, Double Vision Ears, nose, mouth, throat: DENIES: Tinnitus, Hearing loss, Vertigo, Nasal discharge, Oral lesions, Throat pain, Hoarseness, Ear Pain, Running Nose, Epistaxis, Sinus Pain, Toothache, Odynophagia Respiratory: DENIES: Apneas, Cough, Snoring, Wheezing, Hemoptysis, Sputum production, Shortness of breath Cardiovascular: DENIES: Chest pain, Palpitations, Syncope, Dyspnea on Exertion , PND, Lower Extremity Edema, Orthopnea, Claudication Gastrointestinal: COMPLAINS OF: Black stools, Bloody stools Genitourinary: DENIES: Abnormal vaginal bleeding, Dysmenorrhea, Dyspareunia, Sexual dysfunction, Urinary frequency, Urinary incontinence, Urgency, Hematuria , Dysuria, Nocturia, Vaginal discharge Musculoskeletal: DENIES: Joint pain, Muscle aches, Stiffness, Joint Swelling, Back pain, Neck pain Integumentary: DENIES: Abnormal pigmentation, Pruritus, Rash, Nail changes, Breast masses, Breast skin changes, Nipple discharge Hematologic/lymphatic: DENIES: Bruising, Lymphadenopathy Immunologic/allergic: DENIES: Eczema, Urticaria Neurologic: DENIES: Abnormal gait, Headache, Localized weakness, Paresthesias, Seizures, Speech Problems, Tremor, Poor Balance Psychiatric: COMPLAINS OF: Depression Past Family Social History Coded Allergies: Haldol (Verified Allergy, Severe, PSYCHOSIS, 07/14/16) Penicillin (Verified Allergy, Severe, Hives, 07/14/16) Past Medical History See MedSurg Reported Medications Alprazolam (Xanax)0.25 Mg Tab0.25 Mg PO BID Ref 0 07/14/16 Cholecalciferol (Vitamin D High Potency)1,000 Unit Cap2,000 Units PO BID #1 BOTTLE 07/14/16 Pregabalin (Lyrica)100 Mg [id number] Mg PO BID #60 CAP Ref 0 07/14/16 Tolterodine ER (Detrol LA)4 Mg Cap4 Mg PO DAILY #30 CAP Ref 0 07/14/16 Docusate Sodium (Colace)100 Mg [id number] Mg PO HS 07/14/16 Calcium Carbonate-Vitamin D W/Minerals (Caltrate 600+D Plus Minerals)600-800 Mg- Unit Tab1 Tab PO HS Ref 0 07/14/16 Atorvastatin 20 Mg Tab20 Mg PO HS #30 TAB Ref 0 07/14/16 Discontinued Reported Medications Alprazolam (Xanax)0.5 Mg Tab0.5 Mg PO Q8H PRN (ANXIETY) Ref 0 07/14/16 Current Medications Medications (Trade) Dose Ordered Sig/Nohemy Route Start Time Stop Time Status Last Admin (NS Flush) 2 ml UNSCH PRN IVF 07/14/16 11:15 (Xanax) 0.125 mg ONCE PRN PO 07/14/16 14:30 07/14/16 14:47 (Xanax) 0.25 mg BID PO 07/14/16 21:00 07/15/16 19:45 (Lipitor) 20 mg HS PO 07/14/16 21:00 07/15/16 19:52 (Vitamin D3) 2,000 units BID PO 07/14/16 21:00 07/15/16 19:52 (Colace) 100 mg HS PO 07/14/16 21:00 07/15/16 19:52 (Lyrica) 100 mg BID PO 07/14/16 21:00 07/15/16 19:47 (Detrol La) 4 mg DAILY PO 07/15/16 09:00 07/15/16 09:06 (Oscal-D 250-125) 500 mg DAILY PO 07/15/16 09:00 07/15/16 09:06 (NS Flush) 2 ml UNSCH PRN IV FLUSH 07/14/16 16:45 (NS Flush) 2 ml BID IV FLUSH 07/14/16 21:00 07/15/16 09:06 (Zofran Inj) 4 mg Q6HR PRN IV 07/14/16 18:00 (Catapres) 0.1 mg Q6HR PRN PO 07/14/16 18:00 07/15/16 19:45 (Macrobid) 100 mg BIDPC PO 07/15/16 18:00 Family History Denies mental illness and family Social History Patient has supportive daughter Patient's Strengths (min. 2) Patient verbal pleasant cooperative Physical Exam Please [place] [facility] [place] Vital Signs Vital Signs Date Time Temp Pulse Resp B/P Pulse Ox O2 Delivery O2 Flow Rate FiO2 07/16/16 04:00 97.1 89 19 137/86 96 07/14/16 17:46 Room Air I/O 07/15/16 07/15/16 07/16/16 08:00 16:00 00:00 Intake Total 562 ml 150 ml 240 ml Output Total 1 ml 2 ml 650 ml Balance 561 ml 148 ml -410 ml Mental Status Examination Alert white female appears somewhat younger than stated age laying calmly in bed she is oriented the fact that she is in the hospital, does not know location date or time Appearance Clean needs Speech: Unremarkable, Tangential (mildly) Orientation: Person, Place (though she is in a hospital) Memory: Impaired (describe) Thought Process: Loose Association Thought Content: Unremarkable Language Fair Fund of Knowledge Fair Hallucination Type: None (denies) Attention and Concentration: Other (fair) Suicidal Ideation: No (denies) Previous Suicide Attempts: No (denies) Homicidal Ideation: No (denies) Previous Homicide Attempts: No (denies) Insight: Poor Judgment: Poor Affect: Other (slight decreased range and intensity) Mood: Sad Motor Activity: Abnormal gait-specify (patient seen in bed unable to ascertain gait) Assessment & Plan Problem List: (1) Major depressive disorder, single episode, mild ICD Code: F32.0 Assessment & Plan Estimated LOS: days patient is depressed I feel would benefit from an antidepressant would recommend starting Lexapro 10 mg daily. Is okay by psych for discharge for appropriate facility when medically clear and stable. Patient is not a candidate for admission to [facility] thanks for consult follow-up of when necessary basis Discharge Planning To be determined Request HC Surrog/Guard Advoc?: No Ulysses Maynard MD Jul 16, 2016 09:47
[2016-07-16] MEDS ORDERED: ESCI10TA PO ×2 (11:36→14:55)
[2016-07-16] MEDS ORDERED: NITR100C4 PO ×2 (11:36→14:55)
[2016-07-16] MEDS ORDERED: ALPR.25 PO (11:36)
--- NOTE | 2016-07-16 11:36 | HHI.DS ---
Discharge Summary Admission Date Jul 14, 2016 at 16:00 Discharge Date: Jul 16, 2016 Admitting Diagnosis GI Bleed (1) GI bleed ICD Code: K92.2 (2) Colitis ICD Code: K52.9 (3) UTI (urinary tract infection) ICD Code: N39.0 Procedures Colonoscopy Brief History - From Admission 86-year-old female with a medical history significant for dementia, breast cancer status post resection, remote history of atrial fibrillation not on anticoagulant, diverticulosis who presented to the emergency room with complaint of blood in the stool since yesterday. The patient has dementia and unable to contribute much to the history. History obtained from extensive review of the EMR and discussion with the patient's daughter at bedside. Apparently the patient has had a UTI that was previously treated with ciprofloxacin. However couple of days ago her urinalysis was still abnormal and she was switched to Macrobid. She remained asymptomatic from a urinary standpoint. Yesterday afternoon she reportedly had a fever and had a couple episodes of bowel movements with blood in it. This happened at the care home facility and her daughter is unable to quantify. The patient presented today and had another episode of dark stool and bright red blood in the emergency room. She denies abdominal pain at rest. No nausea or vomiting. CBC/BMP: 07/16/16 0850 07/16/16 0850 Significant Findings Laboratory Tests Test 07/14/16 07/14/16 07/15/16 07/15/16 11:20 19:04 03:18 22:20 Red Blood Count 3.64 MIL/MM3 3.19 MIL/MM3 (4.00-5.30) (4.00-5.30) Hematocrit 34.4 % 30.3 % 33.9 % (35.0-46.0) (35.0-46.0) (35.0-46.0) Neutrophils (%) (Auto) 84.1 % (16.0-70.0) Lymphocytes (%) (Auto) 5.2 % (9.0-44.0) Monocytes (%) (Auto) 8.6 % (0.0-8.0) Lymphocytes # (Auto) 0.4 TH/MM3 (1.0-4.8) Estimat Glomerular Filtration 55 ML/MIN (>89) 75 ML/MIN (>89) Rate Aspartate Amino Transf 12 U/L (15-37) (AST/SGOT) Albumin 3.1 GM/DL (3.4-5.0) Hemoglobin 11.2 GM/DL 10.2 GM/DL (11.6-15.3) (11.6-15.3) Platelet Count 140 TH/MM3 (150-450) Neutrophils % (Manual) 75 % (16-70) Platelet Estimate LOW (NORMAL) Chloride Level 109 MEQ/L (98-107) Calcium Level 8.3 MG/DL (8.5-10.1) Test 07/16/16 08:50 Red Blood Count 3.88 MIL/MM3 (4.00-5.30) Estimat Glomerular Filtration 56 ML/MIN (>89) Rate Random Glucose 145 MG/DL (74-106) Imaging Last Impressions Abdomen/Pelvis CT 07/14/16 1115 Signed Impressions: Service Date/Time: , July 14, 2016 13:02 - CONCLUSION: 1. The loss of haustral architecture in the hepatic flexure with some mild blurring of the wall of the colon. This is nonspecific but raises the possibility of an inflammatory process in the hepatic flexure. 2. Sigmoid diverticula without radiographic evidence of diverticulitis. 3. 6 mm noncalcified nodule medial right lung. 4. Small hiatus hernia. 5. 2 cm focal fluid collection in the right inguinal canal which does not connect into the pelvis and does not connect to a loop of bowel. This is of uncertain significance. Manny Stover MD PE at Discharge GENERAL: Elderly female. Anxious and tearful. CARDIOVASCULAR: Regular rate and rhythm without murmurs, gallops, or rubs. RESPIRATORY: Clear to auscultation. Breath sounds equal bilaterally. No wheezes , rales, or rhonchi. GASTROINTESTINAL: Abdomen soft, mildly distended. Nontender to palpation. No guarding. MUSCULOSKELETAL: Trace bilateral lower extremity edema. Negative Homans sign bilaterally. NEUROLOGICAL: Awake and alert. Confused. Normal speech. Pt update on day of discharge Patient reports she is feeling better this morning. Less confused. No abdominal pain. No bowel movements or bleeding. Family requested discharge back to [facility] with home health care instead of the care home facility. Hospital Course 86-year-old female admitted with GI bleeding. Evaluation treatment course detailed below: GI bleed: Patient has been having melena and bright red blood per rectum for the past couple of days. Witnessed episode in the ED. She was recently on antibiotics for UTI. History of diverticulosis. Abdominal CT noted loss of hospital architecture in the hepatic flexure. Some possibility of inflammatory process. Diverticuli with no overt evidence of diverticulitis -C. difficile colitis ruled out. Serial H&H slightly trended down but quickly normalized without needing transfusion. Patient was followed by GI. Colonoscopy showed severe diverticulosis. GI signed off. Elevated BP on admission: This was likely secondary to above. Blood pressure normalized. UTI: Patient was reportedly being treated for UTI at this SNF. She was started on Macrobid yesterday - Continue Macrobid Dementia with behavioral disturbances, mostly anxiety. However the patient was also depressed and at one point requesting to because "she has lived a very good life and does not want to go back to the care home facility because people are fighting there": Patient was seen by psychiatry and was started on Lexapro. Xanax as needed. Pt Condition on Discharge: Good Discharge Disposition: Discharge to SNF Discharge Time: > 30 minutes Discharge Instructions DIET: Follow Instructions for: Heart Healthy Diet Activities you can perform: Regular-No Restrictions, See Additionl Instruction Other Activity Instructions: Per PT Follow up Referrals: PCP Follow-up - 1 Week New Medications: Escitalopram (Escitalopram) 10 Mg Tab 10 MG PO DAILY #30 TAB Nitrofurantoin Monohydrate Macrocrystals (Nitrofurantoin Monohydrate Macrocrystals) 100 Mg Cap 100 MG PO BIDPC #10 CAP Changed Medications: Alprazolam (Xanax) 0.25 Mg Tab 0.25 MG PO BID PRN ANXIETY #20 Ref 0 TAB (Medication details modified) Continued Medications: Atorvastatin (Atorvastatin) 20 Mg Tab 20 MG PO HS Cholesterol Management #30 Ref 0 TAB Calcium Carbonate-Vitamin D W/Minerals (Caltrate 600+D Plus Minerals) 600-800 Mg -Unit Tab 1 TAB PO HS Nutritional Supplement Ref 0 TAB Cholecalciferol (Vitamin D High Potency) 1,000 Unit Cap 2000 UNITS PO BID #1 BOTTLE Docusate Sodium (Colace) 100 Mg Capsule 100 MG PO HS Pregabalin (Lyrica) 100 Mg Cap 100 MG PO BID #60 Ref 0 CAP Tolterodine ER (Detrol LA) 4 Mg Cap 4 MG PO DAILY Urinary Symptom Managemen #30 Ref 0 CAP Juanito Alexandra MD Jul 16, 2016 11:36
[2016-07-16 12:00] VITALS: BP 113/62; PULSE 72; RESP 20; TEMP 98.9; O2SAT 97
--- NOTE | 2016-07-16 14:52 | HHI.GIFU ---
Subjective Remarks Comfortable in bed denies any pain denies any further bleeding Objective Vitals I&O Vital Signs Date Time Temp Pulse Resp B/P Pulse Ox O2 Delivery O2 Flow Rate FiO2 07/16/16 12:00 98.9 72 20 113/62 97 07/16/16 04:00 97.1 89 19 137/86 96 07/16/16 00:00 97.0 69 19 177/80 97 07/15/16 20:00 97.8 82 18 180/82 96 07/15/16 16:00 97.4 82 18 147/66 97 I/O 07/15/16 07/15/16 07/15/16 07/16/16 07/16/16 07/16/16 07:00 15:00 23:00 07:00 15:00 23:00 Intake Total 562 ml 150 ml 240 ml 240 ml Output Total 1 ml 2 ml 650 ml Balance 561 ml 148 ml -410 ml 240 ml Intake Oral 0 ml 0 ml 240 ml 240 ml IV Total 562 ml 150 ml Output Urine Total 1 ml 2 ml 650 ml # Voids 6 # Bowel Movements 4 0 Laboratory Laboratory Tests Test 07/15/16 07/15/16 07/16/16 15:36 22:20 08:50 Hemoglobin 12.6 11.6 12.0 Hematocrit 37.0 33.9 36.9 White Blood Count 7.2 Red Blood Count 3.88 Mean Corpuscular Volume 95.1 Mean Corpuscular Hemoglobin 31.0 Mean Corpuscular Hemoglobin 32.6 Concent Red Cell Distribution Width 14.2 Platelet Count 164 Mean Platelet Volume 8.4 Sodium Level 139 Potassium Level 4.6 Chloride Level 105 Carbon Dioxide Level 23.2 Anion Gap 11 Blood Urea Nitrogen 17 Creatinine 0.94 Estimat Glomerular Filtration 56 Rate Random Glucose 145 Calcium Level 9.1 Physical Exam NECK: Neck is supple. CHEST: Chest is clear to auscultation and percussion. CARDIAC: Regular rate and rhythm with no murmur gallop or rubs. ABDOMEN: Soft, nondistended, nontender; no hepatosplenomegaly; bowel sounds are present in all four quadrants. EXTREMITIES: No clubbing, cyanosis, or edema. SKIN: Normal; no rash; no jaundice. LABORATORY MONITOR: No focal deficits; alert and oriented times three. Assessment and Plan Plan ASSESSMENT - diarrhea, hematochezia - onset yesterday BRBPR and subsequent episodes dark blood and stool seen in bowl. No prior hx GI bleed, last colonoscopy more than 5y ago, findings not known. Does have diverticulosis. CT 07-14-16 --> 1. The loss of haustral architecture in the hepatic flexure with some mild blurring of the wall of the colon. This is nonspecific but raises the possibility of an inflammatory process in the hepatic flexure. 2. Sigmoid diverticula without radiographic evidence of diverticulitis. 3. 6 mm noncalcified nodule medial right lung. 4. Small hiatus hernia. 5. 2 cm focal fluid collection in the right inguinal canal which does not connect into the pelvis and does not connect to a loop of bowel. This is of uncertain significance Resolved diarrhea and bleeding PLAN -Advance diet as tolerated -supportive care - monitor HH and transfuse as needed - further recommendations to follow Not much to add from a GI perspective at this point in time we will sign off Aba Braun MD Jul 16, 2016 14:52
--- NOTE | 2016-07-16 15:23 | HHI.FF ---
Face to Face Verification Diagnosis: (1) GI bleed (2) UTI (urinary tract infection) (3) Major depressive disorder, single episode, mild (4) Dementia I have seen patient Rae Marie on 07/16/16. My clinical findings support the need for the requested home health care services because: Ltd mobility - disease progression Limited ability to care for self Need for psychosocial assistance Impaired cognition/judgement I certify that my clinical findings support that this patient is homebound because: Impaired cognitive ability/safety Need for psychosocial assistance Juanito Alexandra MD Jul 16, 2016 15:23
--- NOTE | 2016-07-17 11:04 | HHI.FF ---
Face to Face Verification Diagnosis: (1) GI bleed (2) Dementia (3) Major depressive disorder, single episode, mild (4) UTI (urinary tract infection) Physical Therapy Order: Evaluate and Treat, Improve ambulation, Strength and gait training Home Health Nursing Order: Medical education Nursing assessment with vital signs I have seen patient Rae Marie on 07/17/16. My clinical findings support the need for the requested home health care services because: Limited ability to care for self Impaired cognition/judgement High risk of falls I certify that my clinical findings support that this patient is homebound because: Impaired cognitive ability/safety Need for psychosocial assistance Juanito Alexandra MD Jul 17, 2016 11:04
== END 2016-07-16 15:40 | DRG 378 ==
LOC: NEPE 10:22 → NEDA 16:00 → HOCB 18:03
PROVIDERS: ADMIT Family Medicine; ATTEND Family Medicine
PROC: 0DJD8ZZ Inspection of Lower Intestinal Tract, Via Natural or Artificial Opening Endoscopic (ICD-10-PCS; principal; 2016-07-15 10:00)
DX: K92.2 Gastrointestinal hemorrhage, unspecified (principal); F32.0 Major depressive disorder, single episode, mild; G30.9 Alzheimer's disease, unspecified; N39.0 Urinary tract infection, site not specified; F02.80 Dementia in other diseases classified elsewhere, unspecified severity, without behavioral disturbance, psychotic disturbance, mood disturbance, and anxiety; I10 Essential (primary) hypertension; Z86.73 Personal history of transient ischemic attack (TIA), and cerebral infarction without residual deficits; M19.90 Unspecified osteoarthritis, unspecified site; F41.9 Anxiety disorder, unspecified; Z85.3 Personal history of malignant neoplasm of breast; E78.00 Pure hypercholesterolemia, unspecified; Z92.3 Personal history of irradiation; Z96.653 Presence of artificial knee joint, bilateral; Z88.0 Allergy status to penicillin; I25.10 Atherosclerotic heart disease of native coronary artery without angina pectoris; I25.2 Old myocardial infarction; Z66 Do not resuscitate; K57.30 Diverticulosis of large intestine without perforation or abscess without bleeding; K52.9 Noninfective gastroenteritis and colitis, unspecified; K44.9 Diaphragmatic hernia without obstruction or gangrene; Z98.61 Coronary angioplasty status
CPT/HCPCS: 74177; 80048; 80053; 83690; 85007; 85014; 85018; 85025; 85027; 85610; 85730; 86850; 86900; 86901; 87493; 96365; C9113; J7030; Q9967

== ENCOUNTER 2017-09-20 12:57 | Inpatient (IN) ==
--- NOTE | 2017-09-20 13:22 | ED ---
HPI General Chief complaint: Weakness Stated complaint: Swollen Face/Evac Source: family Mode of arrival: EMS Limitations: altered mental status (Dementia patient is a and O 1) History of Present Illness MD Complaint: generalized weakness (for past week or so, thought to be secondary to uti, placed on macrobid for it.) Onset (ago): hour(s) (facial swelling since this am) Duration: constant Location: face Severity: mild Relieving factors: none Exacerbating factors: none Context: other (unknown as to what may be causing facial swelling) Associated symptoms: denies other symptoms Related Data Home Medications Medication Instructions Recorded Confirmed alprazolam [Xanax] 0.25 mg PO BID PRN 09/20/17 09/20/17 atorvastatin [Lipitor] 20 mg PO DAILY 09/20/17 09/20/17 diclofenac sodium 75 mg PO BID 09/20/17 09/20/17 docusate sodium 100 mg PO BID 09/20/17 09/20/17 donepezil 10 mg PO DAILY 09/20/17 09/20/17 escitalopram oxalate [Lexapro] 10 mg PO DAILY 09/20/17 09/20/17 nitrofurantoin monohyd/m-cryst 100 mg PO BID 09/20/17 09/20/17 [Macrobid] pregabalin [Lyrica] 100 mg PO TID 09/20/17 09/20/17 tolterodine [Detrol LA] 4 mg PO DAILY 09/20/17 09/20/17 Allergies Allergy/AdvReac Type Severity Reaction Status Date / Time haloperidol Allergy Severe PSYCHOSIS Verified 09/20/17 13:19 penicillin G Allergy Severe Hives Verified 09/20/17 13:19 quetiapine [From Seroquel] Allergy Severe Psychosis Verified 09/20/17 13:19 Review of Systems ROS: all other systems reviewed are negative PMFSH History History Provided By: Patient Social History Social History Second Hand Smoke Exposure: No Smoking Status: Cognitive impairment How Often Do You Have a Drink Containing Alcohol: Unable to Obtain Recent Travel in [facility] within the Last 8 Weeks: No Recent Out of Country Travel within the Last 8 Weeks: No Exam Narrative Exam Narrative: GENERAL: Elderly female...requires full assitance by 2 nurses to use bedpan. SKIN: Warm and dry. HEAD: Atraumatic. Normocephalic. EYES: Pupils equal and round. No scleral icterus. No injection or drainage. ENT: No nasal bleeding or discharge. Mucous membranes pink and moist. Neck abscess, no dental caries, no gingivitis. Patient does have some asymmetric swelling to the right cheek without any overlying cellulitic changes to the cheek. NECK: Trachea midline. No JVD. CARDIOVASCULAR: Irregularly irregular rhythm, normal rate. no rubs or gallops RESPIRATORY: No accessory muscle use. Clear to auscultation. Breath sounds equal bilaterally. GASTROINTESTINAL: Abdomen soft, diffusely tender to percussion and palpation , nondistended. No rebound or guarding MUSCULOSKELETAL: Extremities without clubbing, cyanosis, or bilateral lower extremity has 2+ pitting edema with cellulitic changes encompassing circumferentially both lower extremities up to the knees. No obvious deformities. NEUROLOGICAL: Awake, A/O 1 but able to follow commands well. generalized weakness . four out of 5 muscle strength in the arms and legs. Course Initial Documented Vital Signs Temperature 97.8 F 09/20/17 13:10 Pulse Rate 97 H 09/20/17 13:10 Respiratory Rate 18 09/20/17 13:10 Blood Pressure 137/79 09/20/17 13:10 Pulse Oximetry 96 09/20/17 13:10 Last Documented Vital Signs Temperature 97.8 F 09/20/17 13:10 Pulse Rate 97 H 09/20/17 15:48 Respiratory Rate 16 09/20/17 15:48 Blood Pressure 144/75 H 09/20/17 15:48 Pulse Oximetry 95 09/20/17 15:48 Medical Decision Making [facility] Narrative Medical decision making narrative: CBC shows no evidence of any leukocytosis, no evidence of any anemia, however there is a neutrophilia of 81%. First set of cardiac enzymes negative First set of lactic acid negative/normal 1.5 All electrolytes are within normal limits, with the exception of prerenal azotemia with a BUN of 27 and a creatinine of 1. Slight elevations of liver enzymes with AST of 43, ALT of 118, albumin low at 2.3 normal bilirubin and alk phos slightly elevated at 179...will obtain ultrs gb r/o ascending cholangitis (this may be cancelled if ct demonstrates findings) Catheterized urine does not reveal any active evidence of UTI CT abdomen and pelvis read by radiologist showing no acute abnormality, cardiomegaly and chronic interstitial changes, diverticulosis of the colon without any acute inflammation.....ct does not show evidence of cholangitis. Medical Screen Exam Complete: Yes Emergency Medical Condition: Yes Differential Diagnosis Differential Diagnosis: uti v pna v facial cellulitis v facial angioedema v colitis v sbo v perforation Medical Records Medical records reviewed: Yes I reviewed the patient's medical records. Upon review of chart it was found that the patient has been admitted for GI bleed, colitis, has had a history of dementia, breast cancer status post resection, history of atrial fibrillation but not on any anticoagulants, diverticulosis, hyperlipidemia, (of note the patient back in June was treated with Cipro and switched to Macrobid, and patient tolerated it well) Lab Data Result diagrams: 09/20/17 13:40 09/20/17 13:40 Lab Results 09/20/17 09/20/17 09/20/17 Range/Units 13:40 13:40 13:40 CBC w Diff Auto diff final WBC 6.1 (4.0-11.0) th/mm3 RBC 3.57 L (4.00-5.30) mil/mm3 Hgb 11.9 (11.6-15.3) gm/dL Hct 33.6 L (35.0-46.0) % MCV 94.2 (80.0-100.0) fL MCH 33.3 (27.0-34.0) pg MCHC 35.3 (32.0-36.0) % RDW 14.3 (11.6-17.2) % Plt Count 186 (150-450) th/mm3 MPV 8.5 (7.0-11.0) fL Neut % (Auto) 81.4 H (16.0-70.0) % Lymph % (Auto) 8.2 L (9.0-44.0) % Evans % (Auto) 4.4 (0.0-8.0) % Eos % (Auto) 5.6 H (0.0-4.0) % Baso % (Auto) 0.4 (0.0-2.0) % Neut # (Auto) 5.0 (1.8-7.7) th/mm3 Lymph # (Auto) 0.5 L (1.0-4.8) th/mm3 Evans # (Auto) 0.3 (0.0-0.9) th/mm3 Eos # (Auto) 0.3 (0.0-0.4) th/mm3 Baso # (Auto) 0.0 (0.0-0.2) th/mm3 WBC Differential . Differential Comment . Sodium 139 (136-145) meq/L Potassium 4.2 (3.5-5.1) meq/L Chloride 104 (98-107) meq/L Carbon Dioxide 29.4 (21.0-32.0) meq/L Anion Gap 6 (5-15) meq/L BUN 27 H (7-18) mg/dL Creatinine 1.00 (0.50-1.00) mg/dL Estimated GFR 52 L (>89) mL/min Random Glucose 89 (74-106) mg/dL Lactic Acid 1.5 (0.4-2.0) mmol/L Calcium 8.9 (8.5-10.1) mg/dL Total Bilirubin 0.3 (0.2-1.0) mg/dL AST 43 H (15-37) U/L ALT 118 H (10-53) U/L Alkaline Phosphatase 179 H (45-117) U/L Total Creatine Kinase 55 (26-192) U/L Troponin I Less than 0.02 L (0.02-0.05) ng/mL Total Protein 5.7 L (6.4-8.2) g/dL Albumin 2.3 L (3.4-5.0) g/dL Lipase 96 (73-393) U/L Urine Color (Yellw/Straw) Urine Clarity (Clear) Urine pH (5.0-8.5) Ur Specific Harris (1.002-1.035) Urine Protein (Neg-Trace) mg/dL Urine Glucose (UA) (Negative) mg/dL Urine Ketones (Negative) mg/dL Urine Occult Blood (Negative) Urine Nitrate (Negative) Urine Bilirubin (Negative) Urine Urobilinogen (Less than 2) mg/dL Ur Leukocyte Esterase (Negative) Urine RBC (0-3) /hpf Urine WBC (0-5) /hpf Ur Squamous Epith Cells (0-5) /hpf Micro UA Comment Urine Culture Comments 09/20/17 Range/Units 14:40 CBC w Diff WBC (4.0-11.0) th/mm3 RBC (4.00-5.30) mil/mm3 Hgb (11.6-15.3) gm/dL Hct (35.0-46.0) % MCV (80.0-100.0) fL MCH (27.0-34.0) pg MCHC (32.0-36.0) % RDW (11.6-17.2) % Plt Count (150-450) th/mm3 MPV (7.0-11.0) fL Neut % (Auto) (16.0-70.0) % Lymph % (Auto) (9.0-44.0) % Evans % (Auto) (0.0-8.0) % Eos % (Auto) (0.0-4.0) % Baso % (Auto) (0.0-2.0) % Neut # (Auto) (1.8-7.7) th/mm3 Lymph # (Auto) (1.0-4.8) th/mm3 Evans # (Auto) (0.0-0.9) th/mm3 Eos # (Auto) (0.0-0.4) th/mm3 Baso # (Auto) (0.0-0.2) th/mm3 WBC Differential Differential Comment Sodium (136-145) meq/L Potassium (3.5-5.1) meq/L Chloride (98-107) meq/L Carbon Dioxide (21.0-32.0) meq/L Anion Gap (5-15) meq/L BUN (7-18) mg/dL Creatinine (0.50-1.00) mg/dL Estimated GFR (>89) mL/min Random Glucose (74-106) mg/dL Lactic Acid (0.4-2.0) mmol/L Calcium (8.5-10.1) mg/dL Total Bilirubin (0.2-1.0) mg/dL AST (15-37) U/L ALT (10-53) U/L Alkaline Phosphatase (45-117) U/L Total Creatine Kinase (26-192) U/L Troponin I (0.02-0.05) ng/mL Total Protein (6.4-8.2) g/dL Albumin (3.4-5.0) g/dL Lipase (73-393) U/L Urine Color Yellow (Yellw/Straw) Urine Clarity Clear (Clear) Urine pH 5.5 (5.0-8.5) Ur Specific Harris 1.020 (1.002-1.035) Urine Protein Negative (Neg-Trace) mg/dL Urine Glucose (UA) Negative (Negative) mg/dL Urine Ketones Negative (Negative) mg/dL Urine Occult Blood Negative (Negative) Urine Nitrate Negative (Negative) Urine Bilirubin Negative (Negative) Urine Urobilinogen 0.2 (Less than 2) mg/dL Ur Leukocyte Esterase Negative (Negative) Urine RBC 0-3 (0-3) /hpf Urine WBC 0-5 (0-5) /hpf Ur Squamous Epith Cells 0-5 (0-5) /hpf Micro UA Comment Cath-culture not ind Urine Culture Comments Cath-cult not ind Imaging Data Radiologist's impression: Abdomen/Pelvis CT 09/20/17 13:24 CONCLUSION: 1. No acute abnormality to explain the patient's pain. 2. Cardiomegaly and chronic interstitial changes. 3. Diverticulosis of the colon without acute inflammation. Chest X-Ray 09/20/17 13:24 CONCLUSION: No acute disease Face CT 09/20/17 13:24 CONCLUSION: 1. 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 2. Otherwise, osseous structures are intact. No acute soft tissue abnormality to explain facial swelling. Discharge Plan Discharge Disposition Patient Disposition: 30 Still Patient Discharge Condition Condition: Fair Discharge Details Diagnosis: Generalized muscle weakness, Angioedema Physicians Team ED Provider: Matti Crowder Primary Care Provider: José Antonio Castrejon Rxs /Orders / Referrals /Forms Prescriptions: No Action atorvastatin [Lipitor] 20 mg Tablet 20 mg PO DAILY RF: 0 tolterodine [Detrol LA] 4 mg Capsule,Extended Release 24hr 4 mg PO DAILY RF: 0 donepezil 10 mg Tablet 10 mg PO DAILY RF: 0 alprazolam [Xanax] 0.25 mg Tablet 0.25 mg PO BID PRN (Reason: Agitation) RF: 0 docusate sodium 100 mg Capsule 100 mg PO BID RF: 0 diclofenac sodium 75 mg Tablet,Delayed Release (Dr/Ec) 75 mg PO BID RF: 0 escitalopram oxalate [Lexapro] 10 mg Tablet 10 mg PO DAILY RF: 0 nitrofurantoin monohyd/m-cryst [Macrobid] 100 mg Capsule 100 mg PO BID RF: 0 pregabalin [Lyrica] 100 mg Capsule 100 mg PO TID RF: 0 Status ED Status: In Room
[2017-09-20] MEDS ORDERED: Famotidine PF Inj 20 MG/2 ML Vial IV.PUSH ONE (13:30)
[2017-09-20] MEDS ORDERED: MethylPREDNISolone Sod Succinate Inj 125 MG/2 ML Vial IV.PUSH ONE (13:30)
[2017-09-20 13:49] LABS: Baso % (Auto) 0.4 % (0.0-2.0); Eos # (Auto) 0.3 th/mm3 (0.0-0.4); Eos % (Auto) 5.6 % (0.0-4.0); Hematocrit 33.6 % (35.0-46.0); Hemoglobin 11.9 gm/dL (11.6-15.3); Lymph # (Auto) 0.5 th/mm3 (1.0-4.8); Lymph % (Auto) 8.2 % (9.0-44.0); Mean Corpuscular HGB Conc 35.3 % (32.0-36.0); Mean Corpuscular Hemoglobin 33.3 pg (27.0-34.0); Mean Corpuscular Volume 94.2 fL (80.0-100.0); Mean Platelet Volume 8.5 fL (7.0-11.0); Mono # (Auto) 0.3 th/mm3 (0.0-0.9); Mono % (Auto) 4.4 % (0.0-8.0); Neut % (Auto) 81.4 % (16.0-70.0); Platelet Count 186 th/mm3 (150-450); Red Blood Count 3.57 mil/mm3 (4.00-5.30); Red Cell Distribution Width 14.3 % (11.6-17.2); White Blood Count 6.1 th/mm3 (4.0-11.0)
[2017-09-20 13:58] LABS: Chloride 104 meq/L (98-107); Potassium 4.2 meq/L (3.5-5.1); Sodium 139 meq/L (136-145)
[2017-09-20 14:02] LABS: Albumin 2.3 g/dL (3.4-5.0); Anion Gap 6 meq/L (5-15); Blood Urea Nitrogen 27 mg/dL (7-18); Calcium 8.9 mg/dL (8.5-10.1); Carbon Dioxide 29.4 meq/L (21.0-32.0); Glucose,Random 89 mg/dL (74-106); Lipase 96 U/L (73-393)
[2017-09-20 14:05] LABS: Alanine Aminotransferase 118 U/L (10-53); Aspartate Aminotransferase 43 U/L (15-37); Glomerular Filtration Rate 52 mL/min (>89)
[2017-09-20 14:07] LABS: Total Protein 5.7 g/dL (6.4-8.2)
[2017-09-20 14:08] LABS: Alkaline Phosphatase 179 U/L (45-117)
[2017-09-20 14:11] LABS: Creatine Kinase 55 U/L (26-192)
--- NOTE | 2017-09-20 14:11 | XR ---
EXAM DATE: 09/20/2017 2:03 PM EDT AGE/SEX: 87 years / Female INDICATIONS: Short of breath. General weakness CLINICAL DATA: This is the patient's initial encounter. Patient reports that signs and symptoms have been present for 1 week and indicates a pain score of 0/10. MEDICAL/SURGICAL HISTORY: Alzheimer's disease. Hypertension. Myocardial infarction. Cardiova scular disease. Hypertension. Mastectomy, right. COMPARISON: [facility] [place], CHEST PA & LAT, 03/19/2012. . FINDINGS: A single AP view of the chest demonstrates the lungs to be symmetrically aerated without evidence of mass, infiltrate or effusion. The cardiomediastinal contours are unremarkable. Osseous structures a re intact. CONCLUSION: No acute disease Electronically signed by: Ulysses rTujillo MD 09/20/2017 2:09 PM EDT
[2017-09-20 14:53] LABS: Bilirubin,Urine Negative (Negative); Clarity,Urine Clear (Clear); Color,Urine Yellow (Yellw/Straw); Glucose,Urine (UA) Negative (Negative); Leukocyte Esterase,Urine Negative (Negative); Nitrite,Urine Negative (Negative); PH,Urine 5.5 (5.0-8.5); Urobilinogen,Urine 0.2 mg/dL (Less than 2)
[2017-09-20 15:00] LABS: RBC,Urine 0-3 /hpf (0-3); Squamous Epithelial Cell,Urine 0-5 /hpf (0-5); WBC,Urine 0-5 /hpf (0-5)
--- NOTE | 2017-09-20 16:08 | CT ---
EXAM DATE: 09/20/2017 3:45 PM EDT AGE/SEX: 87 years / Female INDICATIONS: Abdomen tenderness today CLINICAL DATA: This is the patient's initial encounter. Patient reports that signs and symptoms have been present for 1 day and indicates a pain score of 3/10. MEDICAL/SURGICAL HISTORY: Alzheimer's disease. Hypertension. Carcinoma, breast. None. RADIATION DOSE: 19.36 CTDI (mGy) COMPARISON: [facility] [place], CT ABDOMEN & PELVIS W CONTRAST, 07/14/2016. . TECHNIQUE: Multiple contiguous axial images were obtained through the abdomen. Images were obtained using multiple row detector helical technique. Using automated exposure control and adjustment of the mA and/or kV according to patient size, radiation dose was kept as low as reasonably achievable to o btain optimal diagnostic quality images. DICOM format image data is available electronically for rev iew and comparison. FINDINGS: Lower Lungs: Cardiomegaly. No effusions. Chronic interstitial changes within the bases bilaterally. Liver: The liver has a homogeneous density without space-occupying lesion. There is no dilation of th e biliary tree. Spleen: Homogeneous density without enlargement. Pancreas: Unremarkable without mass or calcification. Kidneys: Normal in size and shape. An extrarenal pelvis is seen involving both kidneys. No evidence of mass or hydronephrosis. Adrenal Glands: Unremarkable. Aorta: Diffuse calcified atherosclerotic plaque involving the aorta and inflow vessels. No aneurysm al change.. Bowel/Mesentery: Colonic diverticulosis most pronounced within the sigmoid colon. No acute inflammat ion observed. The bowel loops are grossly unremarkable. The cecum and sigmoid colon have a normal con figuration. Abdominal Wall: Intact. Retroperitoneum: No evidence of adenopathy in the retrocrural, para-aortic, or deep pelvic regions. Bladder: Contours are smooth. Reproductive Organs: No abnormal masses or calcifications seen. Inguinal: The inguinal region is unremarkable without evidence of adenopathy. Bony Structures: A scoliotic and degenerative spine. Postsurgical changes involving the lower lumbar spine. Bilateral hip osteoarthritis.. CONCLUSION: 1. No acute abnormality to explain the patient's pain. 2. Cardiomegaly and chronic interstitial changes. 3. Diverticulosis of the colon without acute inflammation. Electronically signed by: Manny Caicedo MD 09/20/2017 4:06 PM EDT
--- NOTE | 2017-09-20 16:17 | CT ---
EXAM DATE: 09/20/2017 3:46 PM EDT AGE/SEX: 87 years / Female INDICATIONS: Facial swelling today CLINICAL DATA: This is the patient's initial encounter. Patient reports that signs and symptoms have been present for 1 day and indicates a pain score of 0/10. MEDICAL/SURGICAL HISTORY: Hypertension. Alzheimer's disease. Carcinoma, breast. None. RADIATION DOSE: 30.03 CTDI (mGy) COMPARISON: [facility], MR BRAIN W/O CONTRAST, 01/22/2015. . TECHNIQUE: Contiguous images in the axial and coronal planes were obtained using helical multirow de tector technique. Using automated exposure control and adjustment of the mA and/or kV according to p atient size, radiation dose was kept as low as reasonably achievable to obtain optimal diagnostic cristal lity images. DICOM format image data is available electronically for review and comparison. FINDINGS: Orbits: The orbital and infraorbital osseous structures are intact. The retroconal structures have a normal configuration. No radiopaque foreign bodies are seen. Nasal Bone: The nasal bone and maxillary spine are intact. Zygomatic Arches: Symmetric without evidence of fracture. Sinuses: Soft tissue density is seen in the sphenoid sinus extending up into the left side of the pi tuitary fossa. There is some bony expansion and sclerosis of the pituitary fossa and left skull base. 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 Nasal Cavity: The nasal septum is intact and midline. The lacrimal ducts are intact. Soft Tissues: No radiopaque foreign bodies seen. No soft-tissue swelling is seen. Intracranial: No intracranial air seen. Cribriform Plate: Grossly intact. CONCLUSION: 1. 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 2. Otherwise, osseous structures are intact. No acute soft tissue abnormality to explain facial swel ling. Electronically signed by: Ortiz Ferrer MD 09/20/2017 4:16 PM EDT
[2017-09-20] MEDS ORDERED: Acetaminophen 325 MG Tablet PO PRN (17:13)
[2017-09-20] MEDS: Sod Chloride 0.9% Inj 1,000 ML IV.CONT SCH (17:36)
--- NOTE | 2017-09-20 17:57 | US ---
EXAM DATE: 09/20/2017 5:43 PM EDT AGE/SEX: 87 years / Female INDICATIONS: Right upper quadrant pain. CLINICAL DATA: This is the patient's initial encounter. Patient reports that signs and symptoms have been present for 2 days and indicates a pain score of 7/10. MEDICAL/SURGICAL HISTORY: Alzheimer's disease. Hypercholesterolemia. AFib. Chest pain. CAD. Co nstipation. Fibromyalgia. HTN. Insomnia. IA. Urinary incontinence. Hysterectomy. COMPARISON: [facility], CT ABDOMEN & PELVIS W/O CONTRAST, 09/20/2017. . MEASUREMENTS: Liver:__ 20.1 cm. Common Bile Duct:__ 5mm. FINDINGS: Liver: Increased echotexture without focal lesion or ductal dilation. Portal Vein: Hepatopedal flow seen in portal vein. Common Duct: No intraluminal mass or stone visualized. Gallbladder: Gallbladder wall is borderline prominent. Sludge is noted within the gallbladder. No so nographic Harrington's sign or pericholecystic fluid. Pancreas: Not well visualized. Right Kidney: Increased echotexture. No mass or hydronephrosis. Trace perinephric fluid. Other: None CONCLUSION: 1. Echogenic enlarged liver likely reflecting hepatic steatosis or medical liver disease. 2. Gallbladder sludge with nonspecific borderline gallbladder wall prominence. Electronically signed by: Anderson Calloway MD 09/20/2017 5:56 PM EDT
[2017-09-20] MEDS: Senna/Docusate Sodium 8.6/50 MG Tablet PO SCH (20:31)
[2017-09-20] MEDS ORDERED: Temazepam 15 MG Capsule PO PRN (21:00)
[2017-09-21] MEDS: Senna/Docusate Sodium 8.6/50 MG Tablet PO SCH ×2 (09:45→21:04)
[2017-09-21] MEDS: Sod Chloride 0.9% Inj 1,000 ML IV.CONT SCH (11:54)
[2017-09-21] MEDS: ALPRAZolam 0.25 MG Tablet PO SCH ×2 (14:39→21:06)
[2017-09-21] MEDS: Enoxaparin Inj 40 MG/0.4 ML Syringe SQ SCH (15:41)
--- NOTE | 2017-09-21 16:10 | P.HP ---
History of Present Illness Primary Care Physician: José Antonio Castrejon MD History of Present Illness: 87-year-old female with a history of dementia, atrial fibrillation, myocardial infarction. Approximately 2 weeks ago she experienced 3 falls and generalized weakness, when she visited her physician who did a workup that showed she had a urinary tract infection. For the last weeks he has been treated with Macrobid. She is finished her treatment but yesterday became increasingly weak and confused. She was brought in for evaluation and suspected to have a recurrence of her urinary tract infection, but the urine in the ER looked clean. She has had an abnormal swelling on her right cheek that seemed to respond well to steroid dose in the ER. CT showed no abscess. When asked about possible allergy to Macrobid, her daughter stated that her mom did have a rash in her upper thighs that was intermittent a few days ago. She has generalized abdominal pain, CT was within normal limits, but ultrasound showed sludge in the common bile duct, lab work shows elevated liver enzymes. Since admission she has had no complaints of nausea vomiting or diarrhea. She denies any chest pain, shortness of breath, diaphoresis. She denies any fevers, cough, productive or abnormal sputum. Review of Systems All other systems reviewed negative except as stated in HPI PMFSH - History History Provided By: Family Member - Medical History Medical History: Medical History (Last Reviewed 09/20/17 @ 13:13 by Matti Crowder) Alzheimer's disease Atrial fibrillation Chest pain Constipation Coronary artery disease Fibromyalgia High cholesterol Hypertension Insomnia Myocardial infarction Surgical history unknown Urinary bladder incontinence - Family History Family History: Family History (Last Updated 09/21/17 @ 16:03 by Eder Hauser MD) Other Hypertension - Tobacco History Second Hand Smoke Exposure: No Smoking Status: Former smoker - Alcohol History How Often Do You Have a Drink Containing Alcohol: Never - Substance Use History Substance History: No History of Abuse - Travel History Recent Travel in the [place] Within the Last 8 Weeks: No Recent Travel Out of the Country Within the Last 8 Weeks: No - Immunization History Tetanus Immunization: <5 Years Hx Influenza Vaccine This Season: Yes Medications and Allergies Active Medications: Active Medications Acetaminophen (Tylenol) 650 mg PO Q4H PRN PRN Reason: Temp > 100.4 Al Hydroxide/Mg Hydroxide (Milk Of Magnesia Liq) 30 ml PO Q12H PRN PRN Reason: Mild Constipation Alprazolam (Xanax) 0.25 mg PO BID [facility] Last Admin: 09/21/17 14:39 Dose: Not Given Docusate Sodium (Colace) 100 mg PO BID [facility] Donepezil HCl (Aricept) 10 mg PO DAILY [facility] Enoxaparin Sodium (Lovenox Inj) 40 mg SQ Q24H [facility] Last Admin: 09/21/17 15:41 Dose: 40 mg Escitalopram Oxalate (Lexapro) 10 mg PO DAILY [facility] Sodium Chloride (Ns Inj) 1,000 mls @ 64 mls/hr IV.CONT .[id number] [facility] Last Admin: 09/21/17 11:54 Dose: 64 mls/hr Lorazepam (Ativan Inj) 1 mg IV.PUSH Q6H PRN PRN Reason: AGITATION Last Admin: 09/21/17 15:40 Dose: 1 mg Ondansetron HCl (Zofran Inj) 4 mg IV.PUSH Q6H PRN PRN Reason: NAUSEA OR VOMITING Pregabalin (Lyrica) 100 mg PO TID [facility] Last Admin: 09/21/17 14:39 Dose: Not Given Senna/Docusate Sodium (Dana-Colace) 1 tab PO BID [facility] Last Admin: 09/21/17 09:45 Dose: Not Given Sodium Chloride (Ns Flush) 2 ml IV.FLUSH PRN PRN PRN Reason: FLUSH AFTER USING IV ACCESS Temazepam (Restoril) 15 mg PO HS PRN PRN Reason: INSOMNIA Last Admin: 09/20/17 21:57 Dose: 15 mg Tolterodine Tartrate (Detrol La) 4 mg PO DAILY [facility] Allergies Allergy/AdvReac Type Severity Reaction Status Date / Time haloperidol Allergy Severe PSYCHOSIS Verified 09/20/17 13:19 penicillin G Allergy Severe Hives Verified 09/20/17 13:19 quetiapine [From Seroquel] Allergy Severe Psychosis Verified 09/20/17 13:19 Home Medications Medication Instructions Recorded Confirmed Type alprazolam [Xanax] 0.25 mg PO BID PRN 09/20/17 09/20/17 History atorvastatin [Lipitor] 20 mg PO DAILY 09/20/17 09/20/17 History diclofenac sodium 75 mg PO BID 09/20/17 09/20/17 History docusate sodium 100 mg PO BID 09/20/17 09/20/17 History donepezil 10 mg PO DAILY 09/20/17 09/20/17 History escitalopram oxalate [Lexapro] 10 mg PO DAILY 09/20/17 09/20/17 History nitrofurantoin monohyd/m-cryst 100 mg PO BID 09/20/17 09/20/17 History [Macrobid] pregabalin [Lyrica] 100 mg PO TID 09/20/17 09/20/17 History tolterodine [Detrol LA] 4 mg PO DAILY 09/20/17 09/20/17 History Exam Vital signs: Vital Signs 09/20/17 17:16 09/20/17 18:14 09/20/17 20:00 Temperature 96 F L Pulse Rate 106 H 98 H 84 Respiratory Rate 16 18 20 Blood Pressure 115/67 125/77 134/65 Pulse Oximetry 95 98 94 L 09/21/17 00:00 09/21/17 08:00 09/21/17 12:00 Temperature 97.4 F L 97.5 F L 96 F L Pulse Rate 104 H 103 H 86 Respiratory Rate 20 20 20 Blood Pressure 134/76 124/71 137/71 Pulse Oximetry 93 L 90 L 92 L Intake & Output 09/20/17 09/21/17 09/21/17 18:59 06:59 18:59 Intake Total 120 / 120 1000 / 1000 Balance 120 / 120 1000 / 1000 Weight 81.647 kg 80.2 kg Intake: IV 1000 / 1000 NS Inj 1,000 ML @ 64 mls/hr IV. 1000 / 1000 CONT .[id number] [facility] Rx#: [id number] Oral 120 / 120 Other: # Voids 3 # Urine Diapers 2 Narrative: GENERAL: Dementia, agitation, obesity SKIN: Warm and dry, no rashes. HEAD: Atraumatic. Normocephalic. EYES: Pupils equal, round, reactive to light. No scleral icterus. No injection or drainage. ENT: No nasal bleeding or discharge. Moist mucous membranes. Nonerythematous oropharynx. NECK: Trachea midline. No JVD. Thyroid size within normal limits. CARDIOVASCULAR: Irregularly irregular, 1/6 systolic ejection murmur, no gallops , no rubs. RESPIRATORY: Clear and equal to auscultation bilaterally. No crackles, no wheezes. No accessory muscle use. GASTROINTESTINAL: Abdomen soft, mild epigastric tenderness, nondistended, normal active bowel sounds. Hepatic and splenic margins not palpable. MUSCULOSKELETAL: Extremities without clubbing or cyanosis. No obvious deformities. No edema. NEUROLOGICAL: Awake and alert. No obvious cranial nerve deficits. Motor grossly within normal limits. No focal deficits. Five out of 5 muscle strength in the arms and legs. Normal speech. PSYCHIATRIC: Agitated affect, impaired insight and judgment due to advanced dementia Results - Labs CBC & Chem 7: 09/20/17 13:40 09/20/17 13:40 - Imaging Impressions Abdomen/Pelvis CT 09/20/17 13:24 CONCLUSION: 1. No acute abnormality to explain the patient's pain. 2. Cardiomegaly and chronic interstitial changes. 3. Diverticulosis of the colon without acute inflammation. Face CT 09/20/17 13:24 CONCLUSION: 1. 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 2. Otherwise, osseous structures are intact. No acute soft tissue abnormality to explain facial swelling. Gallbladder Ultrasound 09/20/17 16:56 CONCLUSION: 1. Echogenic enlarged liver likely reflecting hepatic steatosis or medical liver disease. 2. Gallbladder sludge with nonspecific borderline gallbladder wall prominence. Caprini VTE Risk Assessment Caprini VTE Risk Assessment: Moderate/High Risk (score >= 2) Caprini Risk Assessment Model: Point Value = 1 Point Value = 2 Point Value = 3 Point Value = 5 Age 41-60 Minor surgery BMI > 25 kg/m2 Swollen legs Varicose veins or History of unexplained or recurrent spontaneous Oral contraceptives or hormone replacement Sepsis (< 1 month) Serious lung disease, including pneumonia (< 1 month) Abnormal pulmonary function Acute myocardial infarction Congestive heart failure (< 1 month) History of inflammatory bowel disease Medical patient at bed rest Age 61-74 Arthroscopic surgery Major open surgery (> 45 min) Laparoscopic surgery (> 45 min) Malignancy Confined to bed (> 72 hours) Immobilizing plaster cast Central venous access Age >= 75 History of VTE Family history of VTE Factor V Leiden Prothrombin [id number] Lupus anticoagulant Anticardiolipin antibodies Elevated serum homocysteine Heparin-induced thrombocytopenia Other congenital or acquired thrombophilia Stroke (< 1 month) Elective arthroplasty Hip, pelvis, or leg fracture Acute spinal cord injury (< 1 month) Prophylaxis Regimen: Total Risk Factor Score Risk Level Prophylaxis Regimen 0-1 Low Early ambulation 2 Moderate Order ONE of the following: *Sequential Compression Device (SCD) *Heparin 5000 units SQ BID 3-4 Higher Order ONE of the following medications: *Heparin 5000 units SQ TID *Enoxaparin/Lovenox 40 mg SQ daily (WT < 150 kg, CrCl > 30 mL/min) *Enoxaparin/Lovenox 30 mg SQ daily (WT < 150 kg, CrCl > 10-29 mL/min) *Enoxaparin/Lovenox 30 mg SQ BID (WT < 150 kg, CrCl > 30 mL/min) AND/OR *Sequential Compression Device (SCD) 5 or more Highest Order ONE of the following medications: *Heparin 5000 units SQ TID (Preferred with Epidurals) *Enoxaparin/Lovenox 40 mg SQ daily (WT < 150 kg, CrCl > 30 mL/min) *Enoxaparin/Lovenox 30 mg SQ daily (WT < 150 kg, CrCl > 10-29 mL/min) *Enoxaparin/Lovenox 30 mg SQ BID (WT < 150 kg, CrCl > 30 mL/min) AND *Sequential Compression Device (SCD) Assessment and Plan - Plan Generalized weakness and worsening of dementia Apparently no recurrence of urinary tract infection Consider other infectious causes, most obvious is abdominal pain Also consider ME given history Abdominal pain Abnormal liver enzymes point to possibility of gallbladder dysfunction HIDA scan is pending Follow laboratory trends Dyspnea with hypoxemia Patient has had oxygen levels trending downward D-dimer and troponin are pending Continue oxygen as needed DVT prophylaxis Lovenox
[2017-09-21 16:12] LABS: Baso # (Auto) 0.1 th/mm3 (0.0-0.2); Baso % (Auto) 0.5 % (0.0-2.0); Eos # (Auto) 0.2 th/mm3 (0.0-0.4); Eos % (Auto) 1.5 % (0.0-4.0); Hematocrit 37.7 % (35.0-46.0); Hemoglobin 12.4 gm/dL (11.6-15.3); Lymph # (Auto) 0.7 th/mm3 (1.0-4.8); Mean Corpuscular HGB Conc 32.8 % (32.0-36.0); Mean Corpuscular Hemoglobin 31.4 pg (27.0-34.0); Mean Corpuscular Volume 95.7 fL (80.0-100.0); Mean Platelet Volume 8.3 fL (7.0-11.0); Mono # (Auto) 0.7 th/mm3 (0.0-0.9); Mono % (Auto) 6.3 % (0.0-8.0); Neut # (Auto) 10.2 th/mm3 (1.8-7.7); Neut % (Auto) 85.7 % (16.0-70.0); Platelet Count 229 th/mm3 (150-450); Red Blood Count 3.94 mil/mm3 (4.00-5.30); Red Cell Distribution Width 14.1 % (11.6-17.2); White Blood Count 11.9 th/mm3 (4.0-11.0)
[2017-09-21] MEDS: Docusate Sodium 100 MG Capsule PO SCH (21:06)
--- NOTE | 2017-09-21 21:30 | XR ---
EXAM DATE: 09/21/2017 9:21 PM EDT AGE/SEX: 87 years / Female INDICATIONS: Evaluate shortness of breath. CLINICAL DATA: This is the patient's subsequent encounter. Patient reports that signs and symptoms h ave been present for 2 days and indicates a pain score of 0/10. MEDICAL/SURGICAL HISTORY: . Hypertension. Alzheimer's disease. Carcinoma, breast. None. COMPARISON: [facility], CHEST 1V SINGLE AP, 09/20/2017. . FINDINGS: A single AP view of the chest demonstrates mild increase in interstitial markings when compared to th e prior exam possibly representing some developing interstitial edema/volume overload. Atelectatic ch anges are seen just above the left hemidiaphragm. Heart size is upper limits of normal. Both shoulder s are high widening characteristic of chronic rotator cuff injuries. CONCLUSION: 1. Mild interstitial prominence could be due to some developing interstitial edema/volume overload. 2. Developing atelectatic changes above the left hemidiaphragm. Electronically signed by: Ortiz Ferrer MD 09/21/2017 9:29 PM EDT
[2017-09-22] MEDS: Escitalopram 10 MG Tablet PO SCH (08:13)
[2017-09-22] MEDS: Senna/Docusate Sodium 8.6/50 MG Tablet PO SCH ×2 (08:13→22:48)
[2017-09-22] MEDS: ALPRAZolam 0.25 MG Tablet PO SCH ×2 (08:13→22:48)
[2017-09-22] MEDS: Docusate Sodium 100 MG Capsule PO SCH ×2 (08:13→22:48)
[2017-09-22] MEDS ORDERED: Tolterodine Tartrate LA 4 MG Capsule PO SCH (09:00)
[2017-09-22] MEDS ORDERED: Sincalide Inj 5 MCG Vial IV.PUSH ONE (12:06)
--- NOTE | 2017-09-22 12:56 | NM ---
EXAM DATE: 09/22/2017 12:49 PM EDT AGE/SEX: 87 years / Female INDICATIONS: Abdominal pain. CLINICAL DATA: This is the patient's initial encounter. Patient reports that signs and symptoms have been present for 1 day and indicates a pain score of 2/10. MEDICAL/SURGICAL HISTORY: Alzheimer's disease. Cardiovascular disease. Hypertension. None. COMPARISON: No prior exams available for comparison. DOSE: 4.1 mCi Tc-99m mebrofenin i.v. Medication: 1.5 mcg Cholecystokinin IV No symptomatic response Cholecystokinin was administered by slow infusion over 8 minutes beginning at 60 minutes. minutes. TECHNIQUE: Following the intravenous administration of radiotracer, dynamic sequential images were pe rformed with continuous acquisition. Time-activity curves were generated. FINDINGS: Hepatic Kinetics: There is prompt uptake of radiotracer in the liver. No focal defects are seen. Ther e is normal rate of washout from the hepatic parenchyma. Biliary Clearance: Activity is first seen in the extrahepatic biliary system at 15 minutes. There is normal excretion into the small bowel. Gallbladder: Activity is first seen in the gallbladder at 20 minutes. Post-CCK: After CCK administration, there is emptying of the gallbladder with a 10% ejection fraction . Common bile duct kinetics are normal and there is no evidence of biliary obstruction. No symptomat ic response after cholecystokinin infusion. Biliary-Enteric Reflux: None observed. CONCLUSION: 1. No findings to indicate acute cholecystitis or biliary obstruction. There was little response fro m the gallbladder with CCK administration. Ejection fraction is only estimated at approximately 10% Electronically signed by: Rusty Brown MD 09/22/2017 12:54 PM EDT
[2017-09-22] MEDS ORDERED: Sodium Chlor 0.9% Inj 500 ML IV.SIG ONE (17:53)
[2017-09-22] MEDS: Enoxaparin Inj 40 MG/0.4 ML Syringe SQ SCH (17:57)
--- NOTE | 2017-09-22 18:03 | P.PNIM ---
Subjective Interval history: Patient is sedated today, she received 0.25 of Xanax for standard dose, her daughter reports that she takes 0.125 mg at home twice daily. Physical Exam Vital signs: Vital Signs 09/21/17 20:00 09/22/17 00:00 09/22/17 07:16 Temperature 100 F H 99.3 F Pulse Rate 111 H 100 H Respiratory Rate 20 20 Blood Pressure 130/95 H 148/74 H Pulse Oximetry 94 L 94 L 94 L 09/22/17 08:00 09/22/17 12:00 09/22/17 16:00 Temperature 98.1 F 98.2 F 98.8 F Pulse Rate 83 77 85 Respiratory Rate 20 19 19 Blood Pressure 149/82 H 120/68 123/70 Pulse Oximetry 94 L 97 96 Intake & Output 09/21/17 09/22/17 09/22/17 18:59 06:59 18:59 Intake Total 1450 / 1450 120 / 120 120 / 120 Output Total 900 / 900 400 / 400 Balance 550 / 550 -280 / -280 120 / 120 Weight 77.2 kg Intake: IV 1300 / 1300 NS Inj 1,000 ML @ 64 mls/hr IV. 1300 / 1300 CONT .[id number] [facility] Rx#: [id number] Oral 150 / 150 120 / 120 120 / 120 Output: Urine 900 / 900 400 / 400 Other: # Voids 5 Narrative: GENERAL: AAOx3, no acute distress, sleepy, obese SKIN: Warm and dry. No rashes HEAD: Atruamtic, normocephalic. EYES: No scleral icterus. No injection or drainage. ENT: Moist mucous membranes, patent nares, no erythema of oropharynx. NECK: Supple, trachea midline. No JVD or lymphadenopathy. Normal thyroid. CARDIOVASCULAR: Regular rate and rhythm. No murmurs, gallops, or rubs. RESPIRATORY: Breath sounds clear equal bilaterally. No crackles or wheezes. No accessory muscle use. GASTROINTESTINAL: Abdomen soft, non-tender, nondistended, normal active bowel sounds MUSCULOSKELETAL: No cyanosis, trace edema NEURO: CN II-XII grossly intact, no focal deficits, no slurring of speech Results - Labs CBC & Chem 7: 09/21/17 16:00 09/20/17 13:40 Microbiology 09/20/17 13:40 Blood - Peripheral Aerobic Blood Culture - Preliminary gram positive cocci 09/20/17 13:40 Blood - Peripheral Anaerobic Blood Culture - Preliminary No growth in 2 days 09/20/17 13:35 Blood - Peripheral Aerobic Blood Culture - Preliminary No growth in 2 days 09/20/17 13:35 Blood - Peripheral Anaerobic Blood Culture - Preliminary No growth in 2 days - Imaging Impressions Chest X-Ray 09/21/17 00:00 CONCLUSION: 1. Mild interstitial prominence could be due to some developing interstitial edema/volume overload. 2. Developing atelectatic changes above the left hemidiaphragm. Bile Acid Absorption NM 09/22/17 00:00 CONCLUSION: 1. No findings to indicate acute cholecystitis or biliary obstruction. There was little response from the gallbladder with CCK administration. Ejection fraction is only estimated at approximately 10% Assessment and Plan - Plan Generalized weakness and worsening of dementia Apparently no recurrence of urinary tract infection Blood cultures initially are showing gram-positive cocci in clusters Patient remains afebrile, but will cover with Levaquin empirically until culture grows further Abdominal pain Hepatic steatosis on CT Uncertain effect of gallbladder on liver HIDA scan shows gallbladder ejection fraction of 10% Gastroenterology consult Dyspnea with hypoxemia Patient has had oxygen levels trending downward D-dimer elevated at 3.66, will get CTA Continue oxygen as needed DVT prophylaxis Lovenox
--- NOTE | 2017-09-22 22:39 | CT ---
EXAM DATE: 09/22/2017 10:30 PM EDT AGE/SEX: 87 years / Female INDICATIONS: Hypoxemia. CLINICAL DATA: This is the patient's initial encounter. Patient reports that signs and symptoms have been present for 4 - 6 days and indicates a pain score of 0/10. MEDICAL/SURGICAL HISTORY: Alzheimer's disease. Hypertension. Myocardial infarction. None. RADIATION DOSE: 18.49 CTDI (mGy) COMPARISON: [facility], CHEST 1V SINGLE AP, 09/21/2017. . TECHNIQUE: Volumetric scanning was performed using a multi-row detector CT scanner during bolus infu faiza of 80 ml Omnipaque 350 (iohexol) nonionic water-soluble contrast as a single exam dose. The jessica a was post processed with a variety of visualization algorithms including full volume maximum intensi ty projection and sliding thin slab reformation. Using automated exposure control and adjustment of t he mA and/or kV according to patient size, radiation dose was kept as low as reasonably achievable to obtain optimal diagnostic quality images. DICOM format image data is available electronically for r eview and comparison. FINDINGS: Pulmonary Arteries: The main pulmonary artery and right left branch vessels are patent. Small areas of pulmonary emboli in several right lower lobe and left lower lobe pulmonary arteries with filling d efects. Lung: There is mild consolidation in the posterior lung bases. Effusion: There is a small right pleural effusion and minimal left pleural fluid. Mediastinum: No evidence of mediastinal or hilar adenopathy. The heart size is mildly prominent. The re are coronary artery calcifications. Other: The axilla is unremarkable. There is a retrocardiac hiatal hernia. CONCLUSION: 1. Small areas of pulmonary emboli in both lower lobe pulmonary arteries. 2. Small pleural effusions right greater than left with mild consolidation in the posterior lung bas es. Electronically signed by: Juliocesar Borja MD 09/22/2017 10:38 PM EDT
[2017-09-23] MEDS ORDERED: Heparin 10,000 UNITS/10 ML Vial (for IV use) IV.PUSH STA (03:18)
[2017-09-23 04:12] LABS: Activated Partial Thrombo Time 27.1 sec (24.3-30.1); INR 1.1 Ratio; Prothrombin Time 11.2 sec (9.8-11.6)
[2017-09-23] MEDS: Heparin Drip 25,000 UNIT/250 ML BAG IV.CONT PRN ×2 (04:37→22:47)
[2017-09-23] MEDS ORDERED: Sod Chloride 0.9% Inj 1,000 ML IV.SIG ONE (05:11)
[2017-09-23 06:49] LABS: Hematocrit 33.7 % (35.0-46.0); Hemoglobin 11.1 gm/dL (11.6-15.3); Mean Corpuscular Hemoglobin 31.5 pg (27.0-34.0); Mean Corpuscular Volume 95.4 fL (80.0-100.0); Mean Platelet Volume 7.8 fL (7.0-11.0); Platelet Count 222 th/mm3 (150-450); Red Blood Count 3.54 mil/mm3 (4.00-5.30); Red Cell Distribution Width 13.7 % (11.6-17.2); White Blood Count 7.3 th/mm3 (4.0-11.0)
[2017-09-23 07:09] LABS: Potassium 3.7 meq/L (3.5-5.1)
[2017-09-23 07:14] LABS: Calcium 8.4 mg/dL (8.5-10.1)
[2017-09-23 07:15] LABS: Carbon Dioxide 25.8 meq/L (21.0-32.0)
[2017-09-23] MEDS: Docusate Sodium 100 MG Capsule PO SCH ×2 (09:45→21:02)
[2017-09-23] MEDS: ALPRAZolam 0.25 MG Tablet PO SCH ×2 (09:45→21:02)
[2017-09-23] MEDS: Escitalopram 10 MG Tablet PO SCH (09:46)
[2017-09-23] MEDS: Senna/Docusate Sodium 8.6/50 MG Tablet PO SCH ×2 (09:46→21:03)
--- NOTE | 2017-09-23 10:08 | P.CONGI ---
History of Present Illness Consult date: 09/23/17 Consult reason: Hepatic steatosis, epigastric pain, gallbladder disease Chief complaint: Gen weakness,angioedema,abdominal pain History of Present Illness: This is an 87-year-old overweight female with Alzheimer's dementia resting in the bed and hollering out at intervals. She was admitted on 09/20/2017 for generalized weakness and abdominal pain. According to the record patient had failed 3 times in her assisted living at [facility] and was also seen to have a UTI. Current labs show hemoglobin 11.1 PT/INR 1.1 elevated LFTs with AST 43 and ALT 118. Alkaline phosphatase noted to be 179 [place] 0.3 and ammonia level 28. According to the record patient was having epigastric discomfort with some right upper quadrant discomfort HIDA scan was completed which showed EF of 10% and hepatic steatosis. Ultrasound of the gallbladder showed sludge and borderline gallbladder wall prominence, but no stones noted or cholecystitis or biliary obstruction. Common bile duct was normal. Gastroenterology was consulted to evaluate patient's abdominal pain, gallbladder dyskinesia, and whether gallbladder disease has any effect on the liver enzymes. According to the record patient does have positive blood cultures, gram-positive cocci. On exam this a.m. patient did note some mild epigastric discomfort and right lower quadrant discomfort to light palpation but otherwise stated she had no abdominal pain. Patient is a poor historian and appears to be unaware that she is in a hospital. She denies any nausea or vomiting or diarrhea. Patient is currently being maintained on 2 L oxygen per nasal cannula, Hitchcock catheter draining orange clear urine after IV hydration. CTA scan did show pulmonary emboli and patient's currently being managed on a heparin drip. <Ruby Pena - Last Filed: 09/23/17 09:47> Review of Systems All other systems reviewed negative except as stated in HPI <Ruby Pena - Last Filed: 09/23/17 09:47> PMFSH - History History Provided By: Family Member - Medical History Medical History: Medical History (Last Reviewed 09/20/17 @ 13:13 by Matti Crowder) Alzheimer's disease Atrial fibrillation Chest pain Constipation Coronary artery disease Fibromyalgia High cholesterol Hypertension Insomnia Myocardial infarction Surgical history unknown Urinary bladder incontinence - Family History Family History: Family History (Last Updated 09/21/17 @ 16:03 by Eder Hauser MD) Other Hypertension - Tobacco History Second Hand Smoke Exposure: No Smoking Status: Former smoker - Alcohol History How Often Do You Have a Drink Containing Alcohol: Never - Substance Use History Substance History: No History of Abuse - Travel History Recent Travel in the [place] Within the Last 8 Weeks: No Recent Travel Out of the Country Within the Last 8 Weeks: No - Immunization History Tetanus Immunization: <5 Years Hx Influenza Vaccine This Season: Yes <Ruby Pena - Last Filed: 09/23/17 09:47> - Medical History Medical History: Medical History (Last Reviewed 09/20/17 @ 13:13 by Matti Crowder) Alzheimer's disease Atrial fibrillation Chest pain Constipation Coronary artery disease Fibromyalgia High cholesterol Hypertension Insomnia Myocardial infarction Surgical history unknown Urinary bladder incontinence - Family History Family History: Family History (Last Updated 09/21/17 @ 16:03 by Eder Hauser MD) Other Hypertension <Teresa Rudolph - Last Filed: 09/23/17 13:08> Medications and Allergies Active Medications: Active Medications Acetaminophen (Tylenol) 650 mg PO Q4H PRN PRN Reason: Temp > 100.4 Al Hydroxide/Mg Hydroxide (Milk Of Merrill Liq) 30 ml PO Q12H PRN PRN Reason: Mild Constipation Alprazolam (Xanax) 0.125 mg PO BID [facility] Last Admin: 09/23/17 09:45 Dose: 0.125 mg Docusate Sodium (Colace) 100 mg PO BID [facility] Last Admin: 09/23/17 09:45 Dose: 100 mg Donepezil HCl (Aricept) 10 mg PO DAILY [facility] Last Admin: 09/23/17 09:46 Dose: 10 mg Escitalopram Oxalate (Lexapro) 10 mg PO DAILY [facility] Last Admin: 09/23/17 09:46 Dose: 10 mg Levofloxacin/Dextrose (Levaquin 750 Mg Premix Inj) 150 mls @ 100 mls/hr IV.SIG Q24H [facility] Last Infusion: 09/23/17 02:34 Dose: Infused Heparin Sodium/Dextrose (Heparin/D5w 25,000 U/250 Ml) 25,000 unit in 250 mls @ 0 mls/hr IV.CONT TITRATE PRN; Protocol PRN Reason: Per Protocol Last Admin: 09/23/17 04:37 Dose: 1,400 units/hr, 14 mls/hr Lorazepam (Ativan Inj) 1 mg IV.PUSH Q6H PRN PRN Reason: AGITATION Last Admin: 09/21/17 15:40 Dose: 1 mg Ondansetron HCl (Zofran Inj) 4 mg IV.PUSH Q6H PRN PRN Reason: NAUSEA OR VOMITING Pregabalin (Lyrica) 100 mg PO TID [facility] Last Admin: 09/22/17 13:42 Dose: Not Given Senna/Docusate Sodium (Dana-Colace) 1 tab PO BID [facility] Last Admin: 09/23/17 09:46 Dose: 1 tab Sodium Chloride (Ns Flush) 2 ml IV.FLUSH PRN PRN PRN Reason: FLUSH AFTER USING IV ACCESS Tolterodine Tartrate (Detrol La) 4 mg PO DAILY [facility] Last Admin: 09/22/17 08:13 Dose: 4 mg <Ruby Pena M - Last Filed: 09/23/17 09:47> Active Medications: Active Medications Acetaminophen (Tylenol) 650 mg PO Q4H PRN PRN Reason: Temp > 100.4 Al Hydroxide/Mg Hydroxide (Milk Of Magnesia Liq) 30 ml PO Q12H PRN PRN Reason: Mild Constipation Alprazolam (Xanax) 0.125 mg PO BID [facility] Last Admin: 09/23/17 09:45 Dose: 0.125 mg Docusate Sodium (Colace) 100 mg PO BID [facility] Last Admin: 09/23/17 09:45 Dose: 100 mg Donepezil HCl (Aricept) 10 mg PO DAILY [facility] Last Admin: 09/23/17 09:46 Dose: 10 mg Escitalopram Oxalate (Lexapro) 10 mg PO DAILY [facility] Last Admin: 09/23/17 09:46 Dose: 10 mg Levofloxacin/Dextrose (Levaquin 750 Mg Premix Inj) 150 mls @ 100 mls/hr IV.SIG Q24H [facility] Last Infusion: 09/23/17 02:34 Dose: Infused Heparin Sodium/Dextrose (Heparin/D5w 25,000 U/250 Ml) 25,000 unit in 250 mls @ 0 mls/hr IV.CONT TITRATE PRN; Protocol PRN Reason: Per Protocol Last Admin: 09/23/17 04:37 Dose: 1,400 units/hr, 14 mls/hr Lorazepam (Ativan Inj) 1 mg IV.PUSH Q6H PRN PRN Reason: AGITATION Last Admin: 09/21/17 15:40 Dose: 1 mg Ondansetron HCl (Zofran Inj) 4 mg IV.PUSH Q6H PRN PRN Reason: NAUSEA OR VOMITING Pantoprazole Sodium (Protonix) 40 mg PO DAILY [facility] Last Admin: 09/23/17 12:36 Dose: 40 mg Pregabalin (Lyrica) 100 mg PO TID [facility] Last Admin: 09/22/17 13:42 Dose: Not Given Senna/Docusate Sodium (Dana-Colace) 1 tab PO BID [facility] Last Admin: 09/23/17 09:46 Dose: 1 tab Sodium Chloride (Ns Flush) 2 ml IV.FLUSH PRN PRN PRN Reason: FLUSH AFTER USING IV ACCESS Tolterodine Tartrate (Detrol La) 4 mg PO DAILY [facility] Last Admin: 09/22/17 08:13 Dose: 4 mg <RonniAmmar - Last Filed: 09/23/17 13:08> Allergies Allergy/AdvReac Type Severity Reaction Status Date / Time haloperidol Allergy Severe PSYCHOSIS Verified 09/20/17 13:19 penicillin G Allergy Severe Hives Verified 09/20/17 13:19 quetiapine [From Seroquel] Allergy Severe Psychosis Verified 09/20/17 13:19 Home Medications Medication Instructions Recorded Confirmed Type atorvastatin [Lipitor] 20 mg PO DAILY 09/20/17 09/20/17 History diclofenac sodium 75 mg PO BID 09/20/17 09/20/17 History docusate sodium 100 mg PO BID 09/20/17 09/20/17 History donepezil 10 mg PO DAILY 09/20/17 09/20/17 History escitalopram oxalate [Lexapro] 10 mg PO DAILY 09/20/17 09/20/17 History nitrofurantoin monohyd/m-cryst 100 mg PO BID 09/20/17 09/20/17 History [Macrobid] pregabalin [Lyrica] 100 mg PO TID 09/20/17 09/20/17 History tolterodine [Detrol LA] 4 mg PO DAILY 09/20/17 09/20/17 History Xanax 0.125 mg PO BID 09/22/17 09/22/17 History Exam Vital signs: Vital Signs 09/22/17 12:00 09/22/17 16:00 09/22/17 20:00 Temperature 98.2 F 98.8 F 98.6 F Pulse Rate 77 85 92 H Respiratory Rate 19 19 20 Blood Pressure 120/68 123/70 126/77 Pulse Oximetry 97 96 95 09/23/17 00:00 09/23/17 04:00 09/23/17 07:45 Temperature 96.7 F L 96.8 F L Pulse Rate 87 76 Respiratory Rate 20 20 Blood Pressure 133/93 H 125/74 Pulse Oximetry 94 L 95 94 L 09/23/17 07:51 Temperature 97.4 F L Pulse Rate 84 Respiratory Rate 20 Blood Pressure 152/85 H Pulse Oximetry 94 L Intake & Output 09/22/17 09/23/17 09/23/17 18:59 06:59 18:59 Intake Total 240 / 240 2009 Output Total 75 / 75 Balance 165 / 165 2009 Weight 78 kg Intake: IV 1650 / 1650 Levaquin 750 mg Premix Inj 150 150 / 150 ML @ 100 mls/hr IV.SIG Q24H [facility] Rx#:[id number] NS Inj 1,000 ML @ Wide Open IV. 1000 / 1000 SIG BOLUS ONE Rx#:[id number] NS Inj 500 ML @ 200 mls/hr IV. 500 / 500 SIG BOLUS ONE Rx#:[id number] Oral 240 / 240 360 / 360 Output: Urine 75 / 75 Other: # Voids 3 - Constitutional mild distress (Hollers out with her confusion otherwise no acute pain) - Routine HEENT Exam Head: Present: normocephalic ENT: Present: mucous membranes dry - Routine Respiratory Exam Present: accessory muscle use (Low volumes but no obvious shortness of breath or wheezing) - Routine Cardiovascular Exam Present: S1, S2, irregular rhythm - Routine Abdominal Exam Present: soft (Round, mild discomfort epigastric region and right upper quadrant to light palpation) - Routine Neurological Exam Present: alert (Awake but unaware of where she is. Poor historian) <Ruby Pena - Last Filed: 09/23/17 09:47> Vital signs: Vital Signs 09/22/17 16:00 09/22/17 20:00 09/23/17 00:00 Temperature 98.8 F 98.6 F 96.7 F L Pulse Rate 85 92 H 87 Respiratory Rate 19 20 20 Blood Pressure 123/70 126/77 133/93 H Pulse Oximetry 96 95 94 L 09/23/17 04:00 09/23/17 07:45 09/23/17 07:51 Temperature 96.8 F L 97.4 F L Pulse Rate 76 84 Respiratory Rate 20 20 Blood Pressure 125/74 152/85 H Pulse Oximetry 95 94 L 94 L 09/23/17 11:20 Temperature 97.6 F Pulse Rate 88 Respiratory Rate 20 Blood Pressure 144/82 H Pulse Oximetry 97 Intake & Output 09/22/17 09/23/17 09/23/17 18:59 06:59 18:59 Intake Total 240 / 240 2009 Output Total 75 / 75 Balance 165 / 165 2009 Weight 78 kg Intake: IV 1650 / 1650 Levaquin 750 mg Premix Inj 150 150 / 150 ML @ 100 mls/hr IV.SIG Q24H [facility] Rx#:[id number] NS Inj 1,000 ML @ Wide Open IV. 1000 / 1000 SIG BOLUS ONE Rx#:[id number] NS Inj 500 ML @ 200 mls/hr IV. 500 / 500 SIG BOLUS ONE Rx#:[id number] Oral 240 / 240 360 / 360 Output: Urine 75 / 75 Other: # Voids 3 <Teresa Rudolph - Last Filed: 09/23/17 13:08> Results - Labs CBC & Chem 7: 09/23/17 06:32 09/23/17 06:32 Labs: Laboratory Results - last 24 hr 09/23/17 09/23/17 09/23/17 03:32 06:32 06:32 WBC 7.3 RBC 3.54 L Hgb 11.1 L Hct 33.7 L MCV 95.4 MCH 31.5 MCHC 33.0 RDW 13.7 Plt Count 222 MPV 7.8 PT 11.2 INR 1.1 APTT 27.1 Sodium 140 Potassium 3.7 Chloride 107 Carbon Dioxide 25.8 Anion Gap 7 BUN 18 Creatinine 0.65 Estimated GFR 86 L Random Glucose 98 Lactic Acid Calcium 8.4 L Ammonia 09/23/17 09/23/17 06:32 06:32 WBC RBC Hgb Hct MCV MCH MCHC RDW Plt Count MPV PT INR APTT Sodium Potassium Chloride Carbon Dioxide Anion Gap BUN Creatinine Estimated GFR Random Glucose Lactic Acid 0.8 Calcium Ammonia 28 - Imaging Impressions Bile Acid Absorption NM 09/22/17 00:00 CONCLUSION: 1. No findings to indicate acute cholecystitis or biliary obstruction. There was little response from the gallbladder with CCK administration. Ejection fraction is only estimated at approximately 10% Chest CTA 09/22/17 00:00 CONCLUSION: 1. Small areas of pulmonary emboli in both lower lobe pulmonary arteries. 2. Small pleural effusions right greater than left with mild consolidation in the posterior lung bases. <Ruby Pena - Last Filed: 09/23/17 09:47> - Labs CBC & Chem 7: 09/23/17 06:32 09/23/17 06:32 Labs: Laboratory Results - last 24 hr 09/23/17 09/23/17 09/23/17 03:32 06:32 06:32 WBC 7.3 RBC 3.54 L Hgb 11.1 L Hct 33.7 L MCV 95.4 MCH 31.5 MCHC 33.0 RDW 13.7 Plt Count 222 MPV 7.8 PT 11.2 INR 1.1 APTT 27.1 Sodium 140 Potassium 3.7 Chloride 107 Carbon Dioxide 25.8 Anion Gap 7 BUN 18 Creatinine 0.65 Estimated GFR 86 L Random Glucose 98 Lactic Acid Calcium 8.4 L Ammonia 09/23/17 09/23/17 09/23/17 06:32 06:32 08:38 WBC RBC Hgb Hct MCV MCH MCHC RDW Plt Count MPV PT INR APTT 75.1 H D Sodium Potassium Chloride Carbon Dioxide Anion Gap BUN Creatinine Estimated GFR Random Glucose Lactic Acid 0.8 Calcium Ammonia 28 - Imaging Impressions Chest CTA 09/22/17 00:00 CONCLUSION: 1. Small areas of pulmonary emboli in both lower lobe pulmonary arteries. 2. Small pleural effusions right greater than left with mild consolidation in the posterior lung bases. <Teresa Rudolph - Last Filed: 09/23/17 13:08> Assessment and Plan (1) Biliary dyskinesia Status: Acute Code(s): K82.8 - Other specified diseases of gallbladder (2) Generalized muscle weakness Status: Acute Code(s): M62.81 - Muscle weakness (generalized) (3) Hepatic steatosis Status: Acute Code(s): K76.0 - Fatty (change of) liver, not elsewhere classified (4) Anemia Status: Acute Code(s): D64.9 - Anemia, unspecified - Plan Anemia, mild probable chronic current hemoglobin 11.1, PT/INR 1.1 Hepatic steatosis with elevated LFTs , transaminitis AST 43 ALT 118, alkaline phosphatase 179, bilirubin normal at 0.3. Ammonia level 28. Biliary dyskinesia with gallbladder EF low approximately 10% per HIDA scan. Patient shows no biliary obstruction and common bile duct shows no dilation. At this point there is no obvious inflammation or infection. Patient does have positive blood cultures gram-positive cocci but also was noted to be treated for UTI. Final and sensitivity is pending. Gallbladder ultrasound showed gallbladder sludge and borderline gallbladder wall prominence. CTA scan which was also performed and patient was noted to have generalized weakness and falls 3 on admission. Results do show pulmonary emboli and patient's currently being managed on a heparin drip. This currently appears to be patient's main issue, currently no procedures warranted at this time. Patient's age and comorbidities also play a factor in no procedures unless patient is obviously bleeding. Patient has history of Alzheimer's dementia and atrial fibrillation as well as other comorbidities. Poor historian and no family members present so no history at this time for any colonoscopies or endoscopies or family history. Epigastric and some right upper quadrant discomfort, biliary dyskinesia noted but no obvious signs of cholecystitis or biliary obstruction. Plan Diet per attending as tolerated Monitor labs with special attention to hemoglobin and LFTs Recheck CMP in a.. [place] per attending EMY Hartman as needed Further recommendations to follow Patient was seen per myself and Dr. Rudolph, note was written on his behalf <Ruby Pena - Last Filed: 09/23/17 09:47> (1) Biliary dyskinesia Status: Acute Code(s): K82.8 - Other specified diseases of gallbladder (2) Generalized muscle weakness Status: Acute Code(s): M62.81 - Muscle weakness (generalized) (3) Hepatic steatosis Status: Acute Code(s): K76.0 - Fatty (change of) liver, not elsewhere classified (4) Anemia Status: Acute Code(s): D64.9 - Anemia, unspecified - Plan Patient was seen and examined, agree with above note, does not seem like this is liver related, the elevated liver enzyme is mild most likely related to fatty liver, this can be followed as an outpatient or if get worse a full workup for the liver can be done, a calculus cholecystitis could be a reason because of the low ejection fraction, patient also has mild anemia so an upper endoscopy could be considered to rule out peptic ulcer disease as a reason for pain and the anemia Patient is confused, will talk to her daughter and see about her wishes <Teresa Rudolph - Last Filed: 09/23/17 13:08>
[2017-09-23] MEDS ORDERED: ALPRAZolam 0.25 MG Tablet PO ONE (14:30)
--- NOTE | 2017-09-23 16:12 | P.PNIM ---
Subjective Interval history: Patient is confused still, but improving. She is not yet at her baseline according to her daughter. Physical Exam Vital signs: Vital Signs 09/22/17 20:00 09/23/17 00:00 09/23/17 04:00 Temperature 98.6 F 96.7 F L 96.8 F L Pulse Rate 92 H 87 76 Respiratory Rate 20 20 20 Blood Pressure 126/77 133/93 H 125/74 Pulse Oximetry 95 94 L 95 09/23/17 07:45 09/23/17 07:51 09/23/17 11:20 Temperature 97.4 F L 97.6 F Pulse Rate 84 88 Respiratory Rate 20 20 Blood Pressure 152/85 H 144/82 H Pulse Oximetry 94 L 94 L 97 09/23/17 12:00 09/23/17 15:16 Temperature 98 F Pulse Rate 82 Respiratory Rate 19 20 Blood Pressure 130/86 Pulse Oximetry 94 L Intake & Output 09/22/17 09/23/17 09/23/17 18:59 06:59 18:59 Intake Total 240 / 240 2009 120 / 120 Output Total 75 / 75 Balance 165 / 165 2009 120 / 120 Weight 78 kg Intake: IV 1650 / 1650 Levaquin 750 mg Premix Inj 150 150 / 150 ML @ 100 mls/hr IV.SIG Q24H [facility] Rx#:[id number] NS Inj 1,000 ML @ Wide Open IV. 1000 / 1000 SIG BOLUS ONE Rx#:[id number] NS Inj 500 ML @ 200 mls/hr IV. 500 / 500 SIG BOLUS ONE Rx#:[id number] Oral 240 / 240 360 / 360 120 / 120 Output: Urine 75 / 75 Other: # Voids 3 Date of Last Bowel Movement 09/23/17 Narrative: GENERAL: AAOx0, no acute distress, awake, worried, obese SKIN: Warm and dry. No rashes HEAD: Atruamtic, normocephalic. EYES: No scleral icterus. No injection or drainage. ENT: Moist mucous membranes, patent nares, no erythema of oropharynx. NECK: Supple, trachea midline. No JVD or lymphadenopathy. Normal thyroid. CARDIOVASCULAR: Regular rate and rhythm. No murmurs, gallops, or rubs. RESPIRATORY: Breath sounds clear equal bilaterally. No crackles or wheezes. No accessory muscle use. GASTROINTESTINAL: Abdomen soft, non-tender, nondistended, normal active bowel sounds MUSCULOSKELETAL: No cyanosis, trace edema NEURO: CN II-XII grossly intact, no focal deficits, no slurring of speech - Urinary Catheter Management Indwelling Urethral Catheter Cath placed during this visit: yes Reason for continuing: Acute urinary retention Insertion date: 09/23/17 Insertion time: 05:50 Results - Labs CBC & Chem 7: 09/23/17 06:32 09/23/17 06:32 Laboratory Results - last 24 hr 09/23/17 09/23/17 09/23/17 03:32 06:32 06:32 WBC 7.3 RBC 3.54 L Hgb 11.1 L Hct 33.7 L MCV 95.4 MCH 31.5 MCHC 33.0 RDW 13.7 Plt Count 222 MPV 7.8 PT 11.2 INR 1.1 APTT 27.1 Sodium 140 Potassium 3.7 Chloride 107 Carbon Dioxide 25.8 Anion Gap 7 BUN 18 Creatinine 0.65 Estimated GFR 86 L Random Glucose 98 Lactic Acid Calcium 8.4 L Ammonia 09/23/17 09/23/17 09/23/17 06:32 06:32 08:38 WBC RBC Hgb Hct MCV MCH MCHC RDW Plt Count MPV PT INR APTT 75.1 H D Sodium Potassium Chloride Carbon Dioxide Anion Gap BUN Creatinine Estimated GFR Random Glucose Lactic Acid 0.8 Calcium Ammonia 28 09/23/17 15:12 WBC RBC Hgb Hct MCV MCH MCHC RDW Plt Count MPV PT INR APTT 71.4 H Sodium Potassium Chloride Carbon Dioxide Anion Gap BUN Creatinine Estimated GFR Random Glucose Lactic Acid Calcium Ammonia Microbiology 09/20/17 13:40 Blood - Peripheral Aerobic Blood Culture - Preliminary Staphylococcus coag negative 09/20/17 13:40 Blood - Peripheral Anaerobic Blood Culture - Preliminary No growth in 3 days 09/20/17 13:35 Blood - Peripheral Aerobic Blood Culture - Preliminary No growth in 3 days 09/20/17 13:35 Blood - Peripheral Anaerobic Blood Culture - Preliminary No growth in 3 days - Imaging Impressions Chest CTA 09/22/17 00:00 CONCLUSION: 1. Small areas of pulmonary emboli in both lower lobe pulmonary arteries. 2. Small pleural effusions right greater than left with mild consolidation in the posterior lung bases. Assessment and Plan - Plan Generalized weakness and worsening of dementia Apparently no recurrence of urinary tract infection Held a number of her p.o. home meds including Lyrica and Detrol Blood cultures initially are showing gram-positive cocci in clusters, sensitivities pending Continue Levaquin Follow cultures Pulmonary emboli Bilateral scattered pulmonary emboli on CTA Continue heparin drip Plan for oral anticoagulants on discharge Lower extremity Doppler pending Abdominal pain Hepatic steatosis on CT Uncertain effect of gallbladder on liver HIDA scan shows gallbladder ejection fraction of 10% Appreciate gastroenterology consult Dyspnea with hypoxemia Oxygenation is stable on nasal cannula D-dimer elevated at 3.66, will get CTA Continue oxygen as needed DVT prophylaxis Lovenox
[2017-09-24 06:44] LABS: Chloride 104 meq/L (98-107); Potassium 3.3 meq/L (3.5-5.1); Sodium 138 meq/L (136-145)
[2017-09-24 06:47] LABS: Albumin 2.2 g/dL (3.4-5.0); Anion Gap 6 meq/L (5-15); Calcium 8.7 mg/dL (8.5-10.1); Carbon Dioxide 27.6 meq/L (21.0-32.0); Glucose,Random 100 mg/dL (74-106)
[2017-09-24 06:48] LABS: Blood Urea Nitrogen 13 mg/dL (7-18)
[2017-09-24 06:50] LABS: Alanine Aminotransferase 41 U/L (10-53); Aspartate Aminotransferase 16 U/L (15-37)
[2017-09-24 06:51] LABS: Glomerular Filtration Rate 73 mL/min (>89)
[2017-09-24 06:52] LABS: Total Protein 5.8 g/dL (6.4-8.2)
[2017-09-24 06:53] LABS: Alkaline Phosphatase 120 U/L (45-117)
[2017-09-24] MEDS: ALPRAZolam 0.25 MG Tablet PO SCH ×2 (09:31→23:03)
[2017-09-24] MEDS: Escitalopram 10 MG Tablet PO SCH (09:31)
[2017-09-24] MEDS: Senna/Docusate Sodium 8.6/50 MG Tablet PO SCH ×2 (09:35→20:06)
[2017-09-24] MEDS: Docusate Sodium 100 MG Capsule PO SCH ×2 (09:35→22:56)
--- NOTE | 2017-09-24 16:39 | US ---
EXAM DATE: 09/24/2017 4:37 PM EDT AGE/SEX: 87 years / Female INDICATIONS: Leg swelling. CLINICAL DATA: This is the patient's initial encounter. Patient reports that signs and symptoms have been present for 1 day and indicates a pain score of 0/10. MEDICAL/SURGICAL HISTORY: . Coronary artery disease. Hypertension. High cholesterol. Myocardial infarction. None. COMPARISON: [facility] [place], [place] LEG LEFT VENOUS DOPPLER, 05/25/2012. . TECHNIQUE: Venous ultrasound of both lower extremities was performed from the inguinal ligament to t he proximal calf. Real-time, color Doppler and spectral tracing, compression and augmentation techni ques were used. FINDINGS: Right Leg: Normal compression of the deep venous system from the inguinal region to the proximal isatu f. No echogenic clot is seen. Normal response of the venous system to augmentation and respiration. Left Leg: Normal compression of the deep venous system from the inguinal region to the proximal calf . No echogenic clot is seen. Normal response of the venous system to augmentation and respiration. Other: None. CONCLUSION: 1. No sonographic evidence for lower extremity DVT. Electronically signed by: Anderson Calloway MD 09/24/2017 4:38 PM EDT
[2017-09-24] MEDS: Heparin Drip 25,000 UNIT/250 ML BAG IV.CONT PRN (16:59)
--- NOTE | 2017-09-24 17:33 | P.PNIM ---
Subjective Interval history: Patient appears to be regaining some of her energy today. She attempted to crawl out of bed. She has behaved for the most part today. Physical Exam Vital signs: Vital Signs 09/23/17 20:00 09/23/17 20:18 09/24/17 00:00 Temperature 97.3 F L 98.0 F Pulse Rate 101 H 76 Respiratory Rate 20 18 Blood Pressure 171/93 H 149/88 H Pulse Oximetry 95 96 97 09/24/17 07:55 09/24/17 11:19 09/24/17 15:31 Temperature 96.8 F L 96.6 F L Pulse Rate 84 82 Respiratory Rate 20 20 Blood Pressure 154/87 H 150/84 H Pulse Oximetry 94 L 93 L 93 L 09/24/17 15:57 Temperature Pulse Rate Respiratory Rate 16 Blood Pressure Pulse Oximetry Intake & Output 09/23/17 09/24/17 09/24/17 18:59 06:59 18:59 Intake Total 870 / 870 400 / 400 850 / 850 Output Total 750 / 750 425 / 425 1250 / 1250 Balance 120 / 120 -25 / -25 -400 / -400 Weight 80.2 kg Intake: IV 400 / 400 250 / 250 Heparin/D5W 25,000 U/250 mL 25, 250 / 250 250 / 250 000 unit In 250 ml @ Per Protocol IV.CONT TITRATE PRN Rx #:[id number] Levaquin 750 mg Premix Inj 150 150 / 150 ML @ 100 mls/hr IV.SIG Q24H HALINA Rx#:[id number] Oral 870 / 870 600 / 600 Output: Urine 750 / 750 1250 / 1250 Urine Amount (Catheter) 425 / 425 Indwelling Urethral Catheter 425 / 425 Other: Date of Last Bowel Movement 09/23/17 09/23/17 09/24/17 # Bowel Movements 3 Narrative: GENERAL: AAOx0, no acute distress, awake, worried, obese SKIN: Warm and dry. No rashes HEAD: Atruamtic, normocephalic. EYES: No scleral icterus. No injection or drainage. ENT: Moist mucous membranes, patent nares, no erythema of oropharynx. NECK: Supple, trachea midline. No JVD or lymphadenopathy. Normal thyroid. CARDIOVASCULAR: Regular rate and rhythm. No murmurs, gallops, or rubs. RESPIRATORY: Breath sounds clear equal bilaterally. No crackles or wheezes. No accessory muscle use. GASTROINTESTINAL: Abdomen soft, non-tender, nondistended, normal active bowel sounds MUSCULOSKELETAL: No cyanosis, trace edema NEURO: CN II-XII grossly intact, no focal deficits, no slurring of speech - Urinary Catheter Management Indwelling Urethral Catheter Cath placed during this visit: yes Reason for continuing: Chronic Urinary Retention Insertion date: 09/23/17 Insertion time: 05:50 Results - Labs CBC & Chem 7: 09/23/17 06:32 09/24/17 06:01 Laboratory Results - last 24 hr 09/24/17 09/24/17 06:01 06:01 APTT 80.5 H Sodium 138 Potassium 3.3 L Chloride 104 Carbon Dioxide 27.6 Anion Gap 6 BUN 13 Creatinine 0.75 Estimated GFR 73 L Random Glucose 100 Calcium 8.7 Total Bilirubin 0.4 AST 16 ALT 41 Alkaline Phosphatase 120 H Total Protein 5.8 L Albumin 2.2 L Microbiology 09/20/17 13:35 Blood - Peripheral Aerobic Blood Culture - Preliminary No growth in 4 days 09/20/17 13:35 Blood - Peripheral Anaerobic Blood Culture - Preliminary No growth in 4 days 09/20/17 13:40 Blood - Peripheral Aerobic Blood Culture - Preliminary Staphylococcus coag negative 09/20/17 13:40 Blood - Peripheral Anaerobic Blood Culture - Preliminary gram positive cocci - Imaging Impressions Venous Doppler Study 09/24/17 00:00 CONCLUSION: 1. No sonographic evidence for lower extremity DVT. Assessment and Plan - Plan Generalized weakness and worsening of dementia Apparently no recurrence of urinary tract infection Held a number of her p.o. home meds including Lyrica and Detrol Blood cultures are showing gram-positive cocci in clusters, final results pending Continue empiric Levaquin Follow cultures for sensitivities Pulmonary emboli Bilateral scattered pulmonary emboli on CTA Continue heparin drip Plan for oral anticoagulants on discharge Lower extremity Doppler is negative for DVT Continue oxygen as needed Abdominal pain Hepatic steatosis on CT HIDA scan shows gallbladder ejection fraction of 10% Gastroenterology recommends no change to current plan Appreciate gastroenterology consult DVT prophylaxis Heparin drip for pulmonary embolism
[2017-09-25] MEDS: ALPRAZolam 0.25 MG Tablet PO SCH ×2 (08:56→20:58)
[2017-09-25] MEDS: Docusate Sodium 100 MG Capsule PO SCH ×2 (08:58→21:18)
[2017-09-25] MEDS: Senna/Docusate Sodium 8.6/50 MG Tablet PO SCH ×2 (08:58→21:20)
[2017-09-25] MEDS: Escitalopram 10 MG Tablet PO SCH (08:58)
--- NOTE | 2017-09-25 09:35 | P.PN ---
Subjective Interval history: Follow-up encephalopathy. She remains confused she can tell me her name. Denies any complaints. Left message with daughter need to discuss anticoagulation and possible discharge. She still has Hitchcock Physical Exam Vital signs: Vital Signs 09/24/17 11:19 09/24/17 15:31 09/24/17 15:57 Temperature 96.8 F L 96.6 F L Pulse Rate 84 82 Respiratory Rate 20 20 16 Blood Pressure 154/87 H 150/84 H Pulse Oximetry 93 L 93 L 09/24/17 19:36 09/24/17 20:00 09/24/17 20:10 Temperature 98.5 F 96 F L Pulse Rate 89 91 H Respiratory Rate 20 20 Blood Pressure 193/103 H 180/87 H Pulse Oximetry 95 93 L 93 L 09/25/17 00:00 09/25/17 04:00 09/25/17 07:33 Temperature 96.4 F L 98.1 F Pulse Rate 80 93 H Respiratory Rate 20 20 Blood Pressure 153/88 H 166/80 H Pulse Oximetry 96 92 L 94 L Intake & Output 09/24/17 09/25/17 09/25/17 18:59 06:59 18:59 Intake Total 850 / 850 210 / 210 Output Total 1250 / 1250 600 / 600 Balance -400 / -400 -390 / -390 Weight 76 kg Intake: IV 250 / 250 150 / 150 Heparin/D5W 25,000 U/250 mL 25, 250 / 250 000 unit In 250 ml @ Per Protocol IV.CONT TITRATE PRN Rx #:[id number] Levaquin 750 mg Premix Inj 150 150 / 150 ML @ 100 mls/hr IV.SIG Q24H [facility] Rx#:[id number] Oral 600 / 600 60 / 60 Output: Urine 1250 / 1250 600 / 600 Other: Date of Last Bowel Movement 09/24/17 09/25/17 # Bowel Movements 3 Narrative: GENERAL: AAOx0, no acute distress, awake, confused, obese SKIN: Warm and dry. No rashes CARDIOVASCULAR: Regular rate and rhythm. No murmurs, gallops, or rubs. RESPIRATORY: Breath sounds clear equal bilaterally. No crackles or wheezes. No accessory muscle use. GASTROINTESTINAL: Abdomen soft, non-tender, nondistended, normal active bowel sounds MUSCULOSKELETAL: No cyanosis, trace edema NEURO: CN II-XII grossly intact, no focal deficits, no slurring of speech - Urinary Catheter Management Indwelling Urethral Catheter Cath placed during this visit: yes Reason for continuing: Acute urinary retention Insertion date: 09/23/17 Insertion time: 05:50 Results - Labs CBC & Chem 7: 09/23/17 06:32 09/24/17 06:01 Laboratory Results - last 24 hr 09/24/17 09/25/17 22:10 05:35 APTT 78.3 H 57.9 H D Microbiology 09/20/17 13:35 Blood - Peripheral Aerobic Blood Culture - Preliminary No growth in 4 days 09/20/17 13:35 Blood - Peripheral Anaerobic Blood Culture - Preliminary No growth in 4 days 09/20/17 13:40 Blood - Peripheral Aerobic Blood Culture - Preliminary Staphylococcus coag negative 09/20/17 13:40 Blood - Peripheral Anaerobic Blood Culture - Preliminary gram positive cocci - Imaging Impressions ITS Impressions Abdomen/Pelvis CT 09/20/17 13:24 CONCLUSION: 1. No acute abnormality to explain the patient's pain. 2. Cardiomegaly and chronic interstitial changes. 3. Diverticulosis of the colon without acute inflammation. Face CT 09/20/17 13:24 CONCLUSION: 1. 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 2. Otherwise, osseous structures are intact. No acute soft tissue abnormality to explain facial swelling. Gallbladder Ultrasound 09/20/17 16:56 CONCLUSION: 1. Echogenic enlarged liver likely reflecting hepatic steatosis or medical liver disease. 2. Gallbladder sludge with nonspecific borderline gallbladder wall prominence. Chest X-Ray 09/21/17 00:00 CONCLUSION: 1. Mild interstitial prominence could be due to some developing interstitial edema/volume overload. 2. Developing atelectatic changes above the left hemidiaphragm. Bile Acid Absorption NM 09/22/17 00:00 CONCLUSION: 1. No findings to indicate acute cholecystitis or biliary obstruction. There was little response from the gallbladder with CCK administration. Ejection fraction is only estimated at approximately 10% Chest CTA 09/22/17 00:00 CONCLUSION: 1. Small areas of pulmonary emboli in both lower lobe pulmonary arteries. 2. Small pleural effusions right greater than left with mild consolidation in the posterior lung bases. Venous Doppler Study 09/24/17 00:00 CONCLUSION: 1. No sonographic evidence for lower extremity DVT. - Procedures none Assessment and Plan - Plan Generalized weakness and worsening of dementia Apparently no recurrence of urinary tract infection Held a number of her p.o. home meds including Lyrica and Detrol Blood cultures are showing coag negative and gram-positive cocci in clusters, final results pending. We will repeat blood cultures today. Likely contaminants Continue empiric Levaquin Pulmonary emboli likely reason for worsening of encephalopathy Bilateral scattered pulmonary emboli on CTA Continue heparin drip Plan for oral anticoagulants on discharge. Need to discuss with family Lower extremity Doppler is negative for DVT Continue oxygen as needed Abdominal pain Hepatic steatosis on CT HIDA scan shows gallbladder ejection fraction of 10% Gastroenterology recommends no change to current plan Appreciate gastroenterology consult DVT prophylaxis Heparin drip for pulmonary embolism Discharge Planning: SENIOR [facility]ARE vs rehab
[2017-09-26] MEDS: Escitalopram 10 MG Tablet PO SCH (09:33)
[2017-09-26] MEDS: Docusate Sodium 100 MG Capsule PO SCH (09:34)
[2017-09-26] MEDS: ALPRAZolam 0.25 MG Tablet PO SCH (09:34)
[2017-09-26] MEDS: Senna/Docusate Sodium 8.6/50 MG Tablet PO SCH (09:37)
--- NOTE | 2017-09-26 12:44 | P.DS ---
Date of admission: 09/25/17 15:01 Primary care physician: José Antonio Castrejon MD Brief History from admission: 87-year-old female with a history of dementia, atrial fibrillation, myocardial infarction. Approximately 2 weeks ago she experienced 3 falls and generalized weakness, when she visited her physician who did a workup that showed she had a urinary tract infection. For the last weeks he has been treated with Macrobid. She is finished her treatment but yesterday became increasingly weak and confused. She was brought in for evaluation and suspected to have a recurrence of her urinary tract infection, but the urine in the ER looked clean. She has had an abnormal swelling on her right cheek that seemed to respond well to steroid dose in the ER. CT showed no abscess. When asked about possible allergy to Macrobid, her daughter stated that her mom did have a rash in her upper thighs that was intermittent a few days ago. She has generalized abdominal pain, CT was within normal limits, but ultrasound showed sludge in the common bile duct, lab work shows elevated liver enzymes. Since admission she has had no complaints of nausea vomiting or diarrhea. She denies any chest pain, shortness of breath, diaphoresis. She denies any fevers, cough, productive or abnormal sputum. DS: Medications - Discharge Medications Prescriptions: apixaban [Eliquis] 10 mg PO BID #73 tab pantoprazole 40 mg PO DAILY #30 tab DS: Summary Hospital Course: Generalized weakness and worsening of dementia Apparently no recurrence of urinary tract infection Held a number of her p.o. home meds including Lyrica and Detrol Blood cultures are showing coag negative and staph capitis, repeat blood cultures NGTD. Likely contaminants On empiric Levaquin Obtain head CT prior to discharge Pulmonary emboli likely reason for worsening of encephalopathy Bilateral scattered pulmonary emboli on CTA Continue Eliquis daughter's preference status post heparin drip Lower extremity Doppler is negative for DVT Continue oxygen as needed Abdominal pain Hepatic steatosis on CT HIDA scan shows gallbladder ejection fraction of 10% Gastroenterology recommends no change to current plan Appreciate gastroenterology consult Urinary retention. Hitchcock catheter. Repeat urinalysis DVT prophylaxis Eliquis - Time Spent with Patient Total time spent providing and/or coordinating discharge services: Greater than 30 minutes - Quality: VTE Deep Vein Thrombosis/Pulmonary Embolism Present on Admission: No Exam Vital signs: Vital Signs 09/25/17 20:00 09/25/17 20:15 09/26/17 00:00 Temperature 96.5 F L 97.8 F Pulse Rate 79 80 Respiratory Rate 20 18 Blood Pressure 150/91 H 130/97 H Pulse Oximetry 96 94 L 94 L 09/26/17 08:00 Temperature 97.0 F L Pulse Rate 89 Respiratory Rate 16 Blood Pressure 139/81 Pulse Oximetry 96 Intake & Output 09/25/17 09/26/17 09/26/17 18:59 06:59 18:59 Intake Total 330 / 330 390 / 390 Output Total 400 / 400 725 / 725 Balance -70 / -70 -335 / -335 Weight 73.6 kg Intake: IV 150 / 150 Levaquin 750 mg Premix Inj 150 150 / 150 ML @ 100 mls/hr IV.SIG Q24H [facility] Rx#:[id number] Oral 330 / 330 240 / 240 Output: Urine 150 / 150 Urine Amount (Catheter) 250 / 250 725 / 725 Indwelling Urethral Catheter 250 / 250 Straight 725 / 725 Other: # Voids 0 # Bowel Movements 2 Narrative: GENERAL: AAOx0, no acute distress, awake, confused, obese SKIN: Warm and dry. No rashes CARDIOVASCULAR: Regular rate and rhythm. No murmurs, gallops, or rubs. RESPIRATORY: Breath sounds clear equal bilaterally. No crackles or wheezes. No accessory muscle use. GASTROINTESTINAL: Abdomen soft, non-tender, nondistended, normal active bowel sounds MUSCULOSKELETAL: No cyanosis, trace edema NEURO: CN II-XII grossly intact, no focal deficits, no slurring of speech Results Procedures completed during hospitalization: none Labs on day of discharge: Preliminary micro results at discharge 09/25/17 13:00 Aerobic Blood Culture - Preliminary Blood - Peripheral No growth in 1 day Anaerobic Blood Culture - Preliminary No growth in 1 day 09/25/17 12:40 Aerobic Blood Culture - Preliminary Blood - Peripheral No growth in 1 day Anaerobic Blood Culture - Preliminary No growth in 1 day - Impressions ITS Impressions Abdomen/Pelvis CT 09/20/17 13:24 CONCLUSION: 1. No acute abnormality to explain the patient's pain. 2. Cardiomegaly and chronic interstitial changes. 3. Diverticulosis of the colon without acute inflammation. Face CT 09/20/17 13:24 CONCLUSION: 1. 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 2. Otherwise, osseous structures are intact. No acute soft tissue abnormality to explain facial swelling. Gallbladder Ultrasound 09/20/17 16:56 CONCLUSION: 1. Echogenic enlarged liver likely reflecting hepatic steatosis or medical liver disease. 2. Gallbladder sludge with nonspecific borderline gallbladder wall prominence. Chest X-Ray 09/21/17 00:00 CONCLUSION: 1. Mild interstitial prominence could be due to some developing interstitial edema/volume overload. 2. Developing atelectatic changes above the left hemidiaphragm. Bile Acid Absorption NM 09/22/17 00:00 CONCLUSION: 1. No findings to indicate acute cholecystitis or biliary obstruction. There was little response from the gallbladder with CCK administration. Ejection fraction is only estimated at approximately 10% Chest CTA 09/22/17 00:00 CONCLUSION: 1. Small areas of pulmonary emboli in both lower lobe pulmonary arteries. 2. Small pleural effusions right greater than left with mild consolidation in the posterior lung bases. Venous Doppler Study 09/24/17 00:00 CONCLUSION: 1. No sonographic evidence for lower extremity DVT. Discharge Plan - Discharge Disposition Patient Disposition: /Home Health Service - Discharge Order Discharge Orders: Discharge Order (Routine); Ordered 09/26/17 Ordered By: Javed Carlos - Physicians Team Primary Care Provider: José Antonio Castrejon Attending Provider: Javed Carlos Other Providers: Matt Gutierrez ; Teresa Rudolph MD
[2017-09-26 13:12] LABS: Bilirubin,Urine Negative (Negative); Clarity,Urine Clear (Clear); Color,Urine Yellow (Yellw/Straw); Glucose,Urine (UA) Negative (Negative); Leukocyte Esterase,Urine Negative (Negative); Nitrite,Urine Negative (Negative); PH,Urine 6.5 (5.0-8.5); Specific Gravity,Urine 1.015 (1.002-1.035); Urobilinogen,Urine 0.2 mg/dL (Less than 2)
[2017-09-26 13:16] LABS: RBC,Urine 0-3 /hpf (0-3); Squamous Epithelial Cell,Urine 0-5 /hpf (0-5); WBC,Urine 0-5 /hpf (0-5)
--- NOTE | 2017-09-26 15:09 | CT ---
EXAM DATE: 09/26/2017 2:58 PM EDT AGE/SEX: 87 years / Female INDICATIONS: Altered mental status. CLINICAL DATA: This is the patient's initial encounter. Patient reports that signs and symptoms have been present for 1 day and indicates a pain score of Nonresponsive. MEDICAL/SURGICAL HISTORY: Hypertension. Myocardial infarction. Alzheimer's disease. Atrial fibri llation. None. RADIATION DOSE: 55.65 CTDI (mGy) COMPARISON: [facility], MR BRAIN W/O CONTRAST, 01/22/2015. . TECHNIQUE: CT of the head without contrast. Using automated exposure control and adjustment of the mA and/or kV according to patient size, radiation dose was kept as low as reasonably achievable to ob tain optimal diagnostic quality images. DICOM format image data is available electronically for revi ew and comparison. FINDINGS: There is no evidence for intracranial hemorrhage, mass effect, or edema. 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 The visualized bony structures appear intact. Moderate degree of brain atrophy is seen. Moderate periventricular w lizbeth matter changes are seen nonspecific mostly consistent with chronic small vessel ischemic changes . There are no signs of acute infarction for technique. CONCLUSION: Chronic small vessel ischemic and atrophic changes. 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 Electronically signed by: Newton Boss MD 09/26/2017 3:08 PM EDT
== END 2017-09-26 17:33 | disposition hospice, home (50) ==
LOC: PHED 12:57 → PHEDA 12:57 → PH3 19:25
PROVIDERS: ADMIT Internal Medicine; ATTEND Internal Medicine